=== PATIENT | female | born 1970 ===

== ENCOUNTER 2020-06-05 15:19 | Outpatient (REF) | payer SELFPAY ==
[2020-06-06 08:21] LABS: Rubeola IgG (Measles) >300.00 AU/mL
[2020-06-06 10:27] LABS: CT PCR NOT DETECTED (Not Detect.); NG PCR NOT DETECTED (Not Detect.)
[2020-06-08 03:29] LABS: Syphilis Screen Nonreactive (Nonreactive)
[2020-06-08 16:37] LABS: TS Negative Control Passed; TS Panel A 0; TS Panel B 0; TS Positive Control Passed; TSpotTB Negative (SeeBelow)
== END 2020-06-05 15:20 | disposition home or self-care (01) ==
LOC: HO.LAB 15:19
PROVIDERS: PCP Internal Medicine; Visit Provider Internal Medicine
DX: Z00.00 Encounter for general adult medical examination without abnormal findings (principal)
CPT/HCPCS: 86481; 86735; 86762; 86765; 86780; 87491; 87591

== ENCOUNTER 2021-03-09 12:37 | Emergency (ER) | payer MEDICAID, OTHER, SELFPAY ==
--- NOTE | ~2021-03-09 | XR_ITS ---
EXAMINATION: XR CHEST CLINICAL INFORMATION: Cough COMPARISON: None TECHNIQUE: 2 views of the chest were obtained. FINDINGS: Normal symmetric lung volumes. No parenchymal consolidation. Mild diffuse bronchial wall thickening. No pleural effusion. No pneumothorax. Cardiomediastinal silhouette and pulmonary vascularity are within normal limits. No acute osseous abnormalities. XR/XR chest 2V IMPRESSION: Mild bronchial wall thickening bronchitis or asthma. No focal consolidation.
[2021-03-09 13:40] VITALS: BP 145/85; PULSE 73; RESP 16; TEMP 36.8; O2SAT 100; BMI 23.6
[2021-03-09 15:00] LABS: COVID-19 Test Positive (Negative); IDNOW Serial# 9DD0AD1C
--- NOTE | 2021-03-09 15:11 | ED_ITS ---
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 Pain is worsened with deep breathing and coughing. No chills, body aches, vomiting, diarrhea, leg swelling or pain. Received moderna vaccine x 2. No recent travel. Monday her tested positive for COVID but she tested negative. Related Data Previous Rx's Medication Instructions Recorded albuterol sulfate 90 mcg/actuation 2 puff INHALATION Q4-6H PRN #8.5 g 03/09/21 aerosol inhaler benzonatate 200 mg capsule 200 mg PO TID PRN #20 cap 03/09/21 Allergies Allergy/AdvReac Type Severity Reaction Status Date / Time No Known Allergies Allergy Verified 03/09/21 15:07 Review of Systems Review of Systems: Yes all other systems are reviewed and are negative Constitutional: Constitutional: Reports no additional constitutional complaints, Denies body ache(s), Denies chills, Reports fever(s), Denies headache(s) and Denies weakness Eyes: Eyes: Reports no additional eye complaints and Denies change in vision ENT: Reports system reviewed and no additional complaints, except as documented, Denies dizziness, Denies headache(s), Denies nasal congestion, Denies nasal discharge and Denies neck pain Cardiovascular: Cardiovascular: Reports no additional cardiovascular compl aints, Reports chest pain, Denies leg edema and Reports dyspnea Respiratory: Respiratory: Reports no additional respiratory complaints, Reports cough and Reports dyspnea Gastrointestinal: Gastrointestinal: Reports no additional gastrointestinal complaints, Denies abdominal pain, Denies diarrhea, Denies nausea and Denies vomiting Genitourinary: Genitourinary: Reports no additional female genitourinary complaints and Denies urinary incontinence Musculoskeletal: Musculoskeletal: Reports no additional musculoskeletal complaints, Reports back pain, Denies arthralgias, Denies joint swelling, Denies neck pain, Denies numbness and Denies tingling Integumentary/Breasts: Skin/Breast: Reports system reviewed and no additional complaints, except as docu and Denies rash Neurologic: Denies Abnormal speech present, Denies dizziness, Denies headache(s), Denies numbness, Denies tingling and Denies weakness PMFSH Past Medical History Attestation statement: The following information was validated with the patient. Source: old records reviewed and nursing notes reviewed Medical History Hypertension Social History Social History Advance Directives: No Advance Directives Information Provided: No Patient : No Physical Exam Vital Signs: Vital Signs: Last Vital Signs Temp 98.2 F 03/09/21 13:40 Pulse 73 03/09/21 13:40 Resp 16 03/09/21 13:40 BP 145/85 H 03/09/21 13:40 Pulse Ox 100 03/09/21 13:40 BMI result Body Mass Index 23.6 Const: General: cooperative, healthy appearing, comfortable and no acute distress Orientation/consciousness: patient oriented x3 Limitations: no limitations HENMT: Head: Yes normal to inspection Ears: hearing grossly normal bilaterally and TM's normal bilaterally General nose exam: Normal external nose present Face and sinus: Yes normal facial exam Mouth: Normal oral and palatal mucosa present Throat: Yes posterior oropharynx normal, Yes tonsils normal and Yes uvula midline Eyes: General: appearance normal, both eyes and all related structures Pupils: Equal, round and reactive pupils present Neck: Neck: Yes normal visual inspection, Yes full ROM and Yes no lymphadenopathy Chest: Chest palpation & inspection: normal inspection of the chest Resp: Effort & Inspection: normal respiratory effort Auscultation: clear to auscultation bilaterally Cardio: Rate: regular rate Rhythm: regular rhythm Peripheral pulses: Peripheral pulses 2+ throughout GI: Inspection: Yes normal to inspection Palpation (GI): Soft to palpation and nontender Auscultation: normal bowel sounds Back/Spine/Pelvis: Thoracic/Lumbar Spine: thoracic and lumbar spine normal to inspection Skin: General skin exam: no rashes or lesions noted Neuro: General: patient oriented x3, no focal motor deficits and normal sensation to monofilament Cranial nerves: Yes Equal, round and reactive pupils present Cognition (Neuro): normal cognition Speech: No Abnormal speech present Gait exam (Neuro): Normal gait present Motor exam (neuro): 5/5 motor strength present throughout Extrem: General: Yes normal to inspection, Yes no pedal edema and Yes no calf tenderness Course Course Course Narrative: 50 yo female with a history of HTN here with complaints of 3 days of subjective fever, cough, chest discomfort with coughing, shortness of breath after coughing fits, back pain. COVID + last week. On arrival. Exam is benign. VSS. No tachypnea, hypoxia. COVID +. Will check CXR. PERC 1 for age. No clinical findings concerning for DVT, no tachpna, tachycardia or fever. Less likely PE 1630-CXR shows no infectious processes. Will send home with albuterol MDI as refill, cough suppressant PRN. Reviewed worrisome signs/symptoms with patient and when to seek additional care. Comfortable with discharge home. MDM - URI/Sore Throat Medical Records Attestation: I reviewed the patient's medical records. Lab Data Attestation: I reviewed the patient's lab results. Labs: Lab Results 03/09/21 Range/Units 14:46 COVID-19 ([facility]INA) Positive A (Negative) COVID-19 Clin Com See Note Imaging Data Chest x-ray: Attestation: I personally reviewed and interpreted this imaging study as follows: Radiologist's impression: [address] [address] XRay Report Signed Patient: Evon Newby MR#: [id number] : 1970 Acct:[id number] Age/Sex: 50 / F ADM Date: 03/09/21 Loc: .ED Attending Dr: Ordering Physician: Payton Bermudez NP Date of Service: 03/09/21 Procedure(s): XR chest 2V Accession Number(s): [id number] cc: Payton Bermudez NP~ EXAMINATION: XR CHEST CLINICAL INFORMATION: Cough COMPARISON: None TECHNIQUE: 2 views of the chest were obtained. FINDINGS: Normal symmetric lung volumes. No parenchymal consolidation. Mild diffuse bronchial wall thickening. No pleural effusion. No pneumothorax.? Cardiomediastinal silhouette and pulmonary vascularity are within normal limits. No acute osseous abnormalities. XR/XR chest 2V IMPRESSION: Mild bronchial wall thickening bronchitis or asthma. No focal consolidation. Discharge Plan Discharge Clinical Impression: COVID-19 Patient Disposition: Home, Self-Care Instructions: COVID-19 (Coronavirus Disease 2019) (ED) Additional Instructions: Quarantine for 5 days. If you live with others in your home then mask up around them. For an additional five days social distance, wear masks around others and do not travel Increase fluids, rest Motrin or Tylenol for pain or fever as needed Return to Er for chest pain, shortness of breath Prescriptions: New albuterol sulfate 90 mcg/actuation HFA aerosol inhaler 2 puff inhalation Q4-6H PRN (Reason: shortness of breath or wheezing) Qty: 8.5 RF: 0 benzonatate 200 mg capsule 200 mg PO TID PRN (Reason: cough) Qty: 20 RF: 0 Referrals: Physician,None [Primary Care Provider] - 2 days Print Language: Hungarian
== END 2021-03-09 16:53 | disposition home or self-care (01) ==
PROVIDERS: Emergency Provider Emergency Medicine
DX: U07.1 COVID-19 (principal); I10 Essential (primary) hypertension
CPT/HCPCS: 71046; 87635; 99283

== ENCOUNTER 2021-03-18 10:21 | Outpatient (REF) | payer MEDICAID, OTHER, SELFPAY ==
[2021-03-18 12:10] LABS: Binax Internal Control QC Valid; Binax Now Covid-19 Ag Negative (Negative)
== END 2021-03-18 10:22 | disposition home or self-care (01) ==
LOC: HO.LAB 10:21
PROVIDERS: Visit Provider Internal Medicine
DX: Z13.89 Encounter for screening for other disorder (principal)

== ENCOUNTER 2021-05-13 13:57 | Outpatient (REF) | payer OTHER, MEDICAID, SELFPAY ==
[2021-05-13 15:33] LABS: Mean Corpuscular HGB Conc 32.4 g/dl (31.0-35.0); Mean Corpuscular Hemoglobin 26.8 pg (27.0-33.0); Mean Corpuscular Volume 82.7 fL (80.0-98.0); Mean Platelet Volume 9.7 fL (9.4-12.3); Platelet Count 342 X10*3/uL (160-400); Red Blood Count 4.11 X10*6/uL (4.20-5.50); Red Cell Distribution Width 14.6 % (11.0-16.0)
[2021-05-13 16:12] LABS: WBC ABN SCTR FOR CBC 1; White Blood Count 6.2 X10*3/uL (4.8-10.8)
[2021-05-13 16:29] LABS: HCG Quantitative < 2 mIU/mL; TSH reflex Free T4 1.05 uIU/mL (0.32-4.0)
[2021-05-13 21:42] LABS: CT PCR NOT DETECTED (Not Detect.); NG PCR NOT DETECTED (Not Detect.)
[2021-05-14 07:31] LABS: Follicle Stimulating Hormone 34.2 mIU/mL; Lutenizing Hormone 13.2 mIU/mL
[2021-05-15 17:17] LABS: HPV mRNA E6/E7 rflx Not Detected (Not Detected)
== END 2021-05-13 13:58 | disposition home or self-care (01) ==
LOC: HO.LAB 13:57
PROVIDERS: Visit Provider Obstetrics & Gynecology
DX: Z01.411 Encounter for gynecological examination (general) (routine) with abnormal findings (principal); Z11.51 Encounter for screening for human papillomavirus (HPV); N93.9 Abnormal uterine and vaginal bleeding, unspecified
CPT/HCPCS: 36415; 83001; 83002; 84443; 84702; 85027; 87491; 87591; 87624; 88142; 99202

== ENCOUNTER 2021-06-01 08:16 | Outpatient (REF) | payer OTHER, MEDICAID, SELFPAY ==
--- NOTE | ~2021-06-01 | MM_ITS ---
EXAMINATION: MM SCREENING DIGITAL BREAST TOMOSYNTHESIS, BILATERAL CLINICAL INFORMATION: Screening. Asymptomatic. Age 50. Prior outside mammography from [facility] currently unavailable. Patient will attempt to assist in retrieving prior outside mammography to allow for comparison in an addendum report. No known family history of breast cancer. The lifetime risk of breast cancer based on the Tyrer-Cuzick Model is 8%. COMPARISON: None. TECHNIQUE: Digital breast tomosynthesis is performed in both the craniocaudal and mediolateral oblique views along with computer-aided detection (CAD). Synthesized 2D images are generated from the tomosynthesis. FINDINGS: The breasts are extremely dense, which lowers the sensitivity of mammography (ACR BI-RADS breast composition Category d). There is no significant mass or architectural abnormality. The axilla and skin contours are unremarkable. There are diffuse bilateral round and some coarse round calcifications in each breast, randomly distributed, greater in number on left. There are also circumferential yearly coarse calcifications posterior upper outer left breast likely related to degenerating fibroadenoma. MM/MM tomosynthesis screening BI IMPRESSION: No mammographic evidence of malignancy. ASSESSMENT: BI-RADS 2: Benign RECOMMENDATION: Routine annual mammography screening. This patient's information was entered into a reminder system with a target due date for their next mammogram.
== END 2021-06-01 08:17 | disposition home or self-care (01) ==
LOC: HO.MAMMO 08:16
PROVIDERS: Visit Provider Obstetrics & Gynecology
DX: Z12.31 Encounter for screening mammogram for malignant neoplasm of breast (principal); N93.9 Abnormal uterine and vaginal bleeding, unspecified; I10 Essential (primary) hypertension; Z98.51 Tubal ligation status
CPT/HCPCS: 58100; 77063; 77067; 81025

== ENCOUNTER 2021-06-01 10:55 | Outpatient (REF) | payer OTHER, MEDICAID, SELFPAY | END 2021-06-01 10:56 | disposition home or self-care (01) | LOC: HO.LAB 10:55 | PROVIDERS: Visit Provider Obstetrics & Gynecology | DX: N93.9 Abnormal uterine and vaginal bleeding, unspecified (principal) | CPT/HCPCS: 88305 ==

== ENCOUNTER 2021-06-08 15:48 | Emergency (ER) | payer OTHER, MEDICAID, SELFPAY ==
--- NOTE | 2021-06-08 | ECG_ITS ---
Test Reason : chest pain Blood Pressure : / mmHG Vent. Rate : 073 BPM Atrial Rate : 073 BPM P-R Int : 126 ms QRS Dur : 074 ms QT Int : 404 ms P-R-T Axes : 036 -20 059 degrees QTc Int : 445 ms Normal sinus rhythm Normal ECG No previous ECGs available Referred By: Generic ED Physician Electronically Signed By:HEATHER MARTINEZ MD
--- NOTE | ~2021-06-08 | XR_ITS ---
EXAMINATION: PORTABLE CHEST 1 VIEW CLINICAL INFORMATION: pain . COMPARISON: No recent pertinent prior studies are available for comparison. TECHNIQUE: Portable frontal view of the chest was obtained. FINDINGS: The lungs are well expanded. No focal infiltrate, effusion, edema, or pneumothorax. Cardiac and mediastinal silhouettes are within normal limits for technique. No acute bony abnormality seen. XR/XR chest 1V IMPRESSION: No evidence of acute disease compared to 03/09/2021.
[2021-06-08 16:06] VITALS: BP 132/76; PULSE 77; RESP 16; TEMP 36.4; O2SAT 99; BMI 25.4
[2021-06-08 16:29] LABS: MANUAL DIFF FLAG NO
[2021-06-08 16:42] LABS: Anion Gap 16 (12-20); Blood Urea Nitrogen 9 mg/dL (9-16); Calcium 9.8 mg/dL (8.4-10.2); Carbon Dioxide 25 mmol/L (22-29); Chloride 101 mmol/L (96-108); Creatinine Clr Calc Pharmacy 62.1; Estimated Glomerular Filt Rate > 60; Glucose Random 112 mg/dL (60-115); Sodium 138 mmol/L (135-145)
[2021-06-08 16:46] LABS: Basophils Percent Auto 0.3 % (0-2); Eosinophils Absolute Auto 0.5 X10*3/uL (0.0-0.4); Eosinophils Percent Auto 5.2 % (0-4); Hematocrit 36.3 % (37.0-47.0); Hemoglobin 11.6 g/dl (12.0-16.0); Imm Gran Abs Auto 0.02 X10*3/uL (0.00-0.03); Imm Gran Pct Auto 0.2 % (0.0-0.4); Mean Corpuscular Hemoglobin 26.4 pg (27.0-33.0); Mean Corpuscular Volume 82.5 fL (80.0-98.0); Mean Platelet Volume 10.8 fL (9.4-12.3); Monocytes Absolute Auto 0.6 X10*3/uL (0.1-1.2); Monocytes Percent Auto 6.6 % (2-11); Neutrophils Absolute Auto 6.1 x10*3/uL (2.0-8.3); Neutrophils Percent Auto 65.7 % (45-73); Platelet Count 179 X10*3/uL (160-400); Red Cell Distribution Width 14.9 % (11.0-16.0); White Blood Count 9.3 X10*3/uL (4.8-10.8)
[2021-06-08 16:50] LABS: Troponin-I High Sensitivity < 3.5 ng/L (<3.5-17.0)
[2021-06-08 18:11] VITALS: BP 133/83; PULSE 72; RESP 16; TEMP 37.1; O2SAT 99
--- NOTE | 2021-06-08 18:12 | ED_ITS ---
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 Mode of arrival: ambulatory Limitations: no limitations History of Present Illness MD complaint: chest pain Onset (ago): day(s) (started this AM) Timing of current episode: constant Prior episodes: No Onset: during rest and during exertion Pain location: left chest Pain radiation: none Severity: moderate Quality: tightness and aching Relieving factors: nothing Exacerbating factors: palpation and movement Context: other (heavy lifting at work) Treatment prior to arrival: none Related Data Home Medications Medication Instructions Recorded Confirmed atenolol 5 mg/10 mL intravenous mg IV 05/13/21 solution Previous Rx's Medication Instructions Recorded cyclobenzaprine 10 mg tablet 10 mg PO TID PRN #14 tab 06/08/21 Allergies Allergy/AdvReac Type Severity Reaction Status Date / Time No Known Allergies Allergy Verified 05/13/21 14:29 Review of Systems Review of Systems: Constitutional : No Weight loss, No Fever, No Chills ENT/Mouth : No sore throat, No Rhinorrhea Eyes: No Eye Pain, No Swelling Cardiovascular : pos Chest Pain, no SOB, no Dyspnea on Exertion, No Orthopnea, No Edema, No Palpitations Respiratory : No Cough, No Sputum Gastrointestinal : no Nausea, No Vomiting, No Diarrhea, No abdominal Pain, No Hematochezia, No Melena Genitourinary : No Dysuria, No Urinary Frequency Musculoskeletal : No joint pain, No Myalgias, No Joint Swelling Skin : No Skin Lesions, No rash Neuro : No Weakness, No Numbness, No Dizziness, No Headache Psych : No Anxiety/Panic, No Depression Heme/Lymph: No Bruising, No Lymphadenopathy Endocrine : No Polyuria, No Polydipsia All other systems reviewed and are negative [facility] Past Medical History Attestation statement: The following information was validated with the patient. Medical History Hypertension Surgical History H/O tubal ligation History of lumpectomy of right breast Hx of section Social History Social History Patient Tobacco Use Status: Never used Tobacco Advance Directives: No Advance Directives Information Provided: No Physical Exam Vital Signs: Vital Signs: Last Vital Signs Temp 98.7 F 06/08/21 18:11 Pulse 72 06/08/21 18:11 Resp 16 06/08/21 18:11 BP 133/83 06/08/21 18:11 Pulse Ox 99 06/08/21 18:11 BMI result Body Mass Index 25.4 Appearance: Alert. Oriented X3. No acute distress. Eyes: Pupils equal, round and reactive to light. ENT: Pharynx normal. Neck: Normal inspection. Neck supple. CVS: Normal heart rate and rhythm. Pulses normal. Chest: ttp along L chest wall reproduces pain Respiratory: No respiratory distress. Breath sounds normal. Abdomen: Soft and non-tender. Skin: Skin warm and dry. Normal skin color. Normal skin turgor. Extremities: No lower extremity edema. No calf ttp Neuro: Oriented X 3. No motor deficit. No sensory deficit. Course Course Course Narrative: two troponins negative, CXR negative, nonischemic EKG MDM - Chest Pain MDM Narrative Medical decision making narrative: 50 yo female with hx of HTN was lifting heavy things at work yesterday she reports left sided chest wall pain since then no associated symptoms sent over from for evaluation. She initially refused repeat troponin but agrees for delta study. At this time her pain does seem MSK in nature. She has no hypoxia, tachycardia it is not pleuritic pain, no signs of DVT - doubt PE. In no distress - distal pulses are bounding doubt dissection. Dispo per results and findings. Lab Data Result diagrams: 06/08/21 16:17 06/08/21 16:17 Labs: Lab Results 06/08/21 06/08/21 06/08/21 Range/Units 16:17 16:17 16:17 WBC 9.3 (4.8-10.8) X10*3/uL RBC 4.40 (4.20-5.50) X10*6/uL Hgb 11.6 L (12.0-16.0) g/dl Hct 36.3 L (37.0-47.0) % MCV 82.5 (80.0-98.0) fL MCH 26.4 L (27.0-33.0) pg MCHC 32.0 (31.0-35.0) g/dl RDW 14.9 (11.0-16.0) % Plt Count 179 D (160-400) X10*3/uL MPV 10.8 (9.4-12.3) fL Immature Gran % (Auto) 0.2 (0.0-0.4) % Neut % (Auto) 65.7 (45-73) % Lymph % (Auto) 22.0 (20-40) % [place] % (Auto) 6.6 (2-11) % Eos % (Auto) 5.2 H (0-4) % Baso % (Auto) 0.3 (0-2) % Lymph # (Auto) 2.0 (1.2-4.9) X10*3/uL [place] # (Auto) 0.6 (0.1-1.2) X10*3/uL Eos # (Auto) 0.5 H (0.0-0.4) X10*3/uL Baso # (Auto) 0.0 (0.0-0.2) X10*3/uL Abs Immat Gran (auto) 0.02 (0.00-0.03) X10*3/uL Absolute Neuts (auto) 6.1 (2.0-8.3) x10*3/uL Absolute Nucleated RBC 0.000 (0.0-0.012) X10*3/uL Nucleated RBC % (auto) 0.0 (0.0-0.2) /100WBC Sodium 138 (135-145) mmol/L Potassium 4.0 (3.3-5.1) mmol/L Chloride 101 (96-108) mmol/L Carbon Dioxide 25 (22-29) mmol/L Anion Gap 16 (12-20) BUN 9 (9-16) mg/dL Creatinine 0.89 (0.5-1.4) mg/dL Estim Creat Clear Calc 62.1 Estimated GFR > 60 Random Glucose 112 (60-115) mg/dL Calcium 9.8 (8.4-10.2) mg/dL Troponin I High Sens < 3.5 (<3.5-17.0) ng/L 06/08/21 Range/Units 19:14 WBC (4.8-10.8) X10*3/uL RBC (4.20-5.50) X10*6/uL Hgb (12.0-16.0) g/dl Hct (37.0-47.0) % MCV (80.0-98.0) fL MCH (27.0-33.0) pg MCHC (31.0-35.0) g/dl RDW (11.0-16.0) % Plt Count (160-400) X10*3/uL MPV (9.4-12.3) fL Immature Gran % (Auto) (0.0-0.4) % Neut % (Auto) (45-73) % Lymph % (Auto) (20-40) % [place] % (Auto) (2-11) % Eos % (Auto) (0-4) % Baso % (Auto) (0-2) % Lymph # (Auto) (1.2-4.9) X10*3/uL [place] # (Auto) (0.1-1.2) X10*3/uL Eos # (Auto) (0.0-0.4) X10*3/uL Baso # (Auto) (0.0-0.2) X10*3/uL Abs Immat Gran (auto) (0.00-0.03) X10*3/uL Absolute Neuts (auto) (2.0-8.3) x10*3/uL Absolute Nucleated RBC (0.0-0.012) X10*3/uL Nucleated RBC % (auto) (0.0-0.2) /100WBC Sodium (135-145) mmol/L Potassium (3.3-5.1) mmol/L Chloride (96-108) mmol/L Carbon Dioxide (22-29) mmol/L Anion Gap (12-20) BUN (9-16) mg/dL Creatinine (0.5-1.4) mg/dL Estim Creat Clear Calc Estimated GFR Random Glucose (60-115) mg/dL Calcium (8.4-10.2) mg/dL Troponin I High Sens < 3.5 (<3.5-17.0) ng/L ECG Data ECG #1: Attestation: I personally reviewed and interpreted this ECG as follows: ECG interpretation date: 06/08/21 ECG interpretation time: 18:14 Interpretation: Rate: 73 Rhythm: NSR [place]: left Normal P waves. Normal BELA. Normal QRS complex. ST T wave : normal no EFE qTC: normal prior studies: no acute ischemia The study has been interpreted contemporaneously by me. Discharge Plan Discharge Clinical Impression: Atypical chest pain Patient Disposition: Home, Self-Care Instructions: Chest Pain (ED) Additional Instructions: return to ED for any worsening symptoms or concerns Prescriptions: New cyclobenzaprine 10 mg tablet 10 mg PO TID PRN (Reason: muscle spasm) Qty: 14 0RF No Action atenolol 5 mg/10 mL solution IV 0RF Stand Alone Forms: Work/School Release Print Language: Montenegrin
[2021-06-08 19:45] LABS: Troponin-I High Sensitivity < 3.5 ng/L (<3.5-17.0)
== END 2021-06-08 20:21 | disposition home or self-care (01) ==
PROVIDERS: Emergency Provider Emergency Medicine
DX: R07.89 Other chest pain (principal); R00.2 Palpitations; Z79.899 Other long term (current) drug therapy
CPT/HCPCS: 36415; 71045; 80048; 84484; 85025; 93005; 99283; 99285

== ENCOUNTER → 2021-06-15 11:13 | Outpatient (BNVA) | payer OTHER, MEDICAID, SELFPAY | PROVIDERS: Visit Provider Obstetrics & Gynecology | DX: N93.9 Abnormal uterine and vaginal bleeding, unspecified (principal) | CPT/HCPCS: 99212 ==

== ENCOUNTER 2021-07-02 16:08 | Emergency (ER) | payer MEDICAID, OTHER, SELFPAY ==
--- NOTE | ~2021-07-02 | XR_ITS ---
EXAMINATION: XR CHEST 2 VIEW CLINICAL INFORMATION: Cough COMPARISON: 06/08/2021. TECHNIQUE: PA and lateral views of the chest obtained. FINDINGS: The lungs are clear. There are no pleural effusions. The cardiomediastinal silhouette is normal. XR/XR chest 2V IMPRESSION: No active cardiopulmonary disease.
[2021-07-02 16:11] VITALS: BP 144/81; PULSE 84; RESP 19; TEMP 36.6; O2SAT 98; BMI 25.4
--- NOTE | 2021-07-02 18:02 | ED.URI ---
HPI - URI/Sore Throat General Chief Complaint: Upper Respiratory Symptoms Stated Complaint: coughing/SOB/chest pains Time Seen by Provider: 07/02/21 18:01 Source: patient Mode of arrival: ambulatory History of Present Illness HPI Narrative: 50-year-old female with a past medical history of hypertension, , presenting to the ED complaining of productive cough x5 days and sore throat. Reports mild SOB. Denies fever, chills, chest pain, abdominal pain, recent travel, pedal edema, sick contacts MD elicited complaint: cough Onset (ago): day(s) Related Data Home Medications Medication Instructions Recorded Confirmed atenolol 5 mg/10 mL intravenous mg IV 05/13/21 solution Previous Rx's Medication Instructions Recorded cyclobenzaprine 10 mg tablet 10 mg PO TID PRN #14 tab 06/08/21 ferrous sulfate 325 mg (65 mg 325 mg PO DAILY 30 Days #30 tab 06/10/21 iron) tablet,delayed release benzonatate 200 mg capsule 200 mg PO TID PRN #20 cap 07/02/21 Allergies Allergy/AdvReac Type Severity Reaction Status Date / Time No Known Allergies Allergy Verified 05/13/21 14:29 Review of Systems Review of Systems: Constitutional: No Fever, No Chills ENT/Mouth: No Ear Pain, No Nasal Congestion, No Sinus Pain, No Hoarseness, No sore throat, No Rhinorrhea, No Swallowing Difficulty Cardiovascular: No Chest Pain, + SOB Respiratory: + Cough, + Sputum, No Wheezing Gastrointestinal: No Nausea, No Vomiting, No Diarrhea, No Constipation, No Abdominal pain Genitourinary: No Dysuria, No Urinary Frequency, No Hematuria, No Flank Pain Musculoskeletal: No joint pain, No Myalgias, No Joint Swelling Skin: No Skin Lesions, No rash Neuro: No Weakness, No Numbness, No Paresthesias Yes all other systems are reviewed and are negative [facility] Past Medical History Attestation statement: The following information was validated with the patient. Medical History Hypertension Surgical History H/O tubal ligation History of lumpectomy of right breast Hx of section Social History Social History Patient Tobacco Use Status: Never used Tobacco Advance Directives: No Advance Directives Information Provided: Yes Physical Exam Vital Signs: Vital Signs: Last Vital Signs Temp 98 F 07/02/21 16:11 Pulse 84 07/02/21 16:11 Resp 19 07/02/21 16:11 BP 144/81 H 07/02/21 16:11 Pulse Ox 98 07/02/21 16:11 BMI result Body Mass Index 25.4 Const: General: cooperative, healthy appearing and no acute distress Orientation/consciousness: patient oriented x3 Limitations: no limitations HEENT: Head: Yes normal to inspection and Yes atraumatic Ears: hearing grossly normal bilaterally General nose exam: Normal external nose present Face and sinus: Yes normal facial exam Mouth: Normal oral and palatal mucosa present Throat: Yes posterior oropharynx normal, Yes tonsils normal, Yes uvula midline, No peritonsillar mass and No uvular edema Eyes: General: appearance normal, both eyes and all related structures EOM: EOMs intact bilaterally Neck: Neck: Yes normal visual inspection and Yes no meningeal signs Resp: Effort & Inspection: normal respiratory effort and no respiratory distress Auscultation: clear to auscultation bilaterally, no rales, no rhonchi and no wheezes Cardio: Rate: regular rate Heart sounds: S1 normal heart sound present and S2 normal heart sound present Skin: Rashes: no rashes Wounds: no wounds Neuro: General: patient oriented x3, tone normal and no meningeal signs Gait exam (Neuro): Normal gait present Extrem: General: Yes normal to inspection and Yes no pedal edema Course Course Course Narrative: - COVID-19 and influenza negative. CXR unremarkable. MDM - URI/Sore Throat MDM Narrative Medical decision making narrative: 50-year-old female with a past medical history of hypertension, , presenting to the ED complaining of productive cough x5 days and sore throat. on exam vital signs stable, NAD/nontoxic, lungs CTA, no pedal edema. Concern for viral illness versus bronchitis versus pneumonia. Symptoms atypical for ACS/ PE Plan: COVID-19/ influenza testing, CXR Differential Diagnosis Differential diagnosis: Likely upper respiratory infection, viral infection, bronchitis and influenza Medical Records Attestation: I reviewed the patient's medical records. Lab Data Attestation: I reviewed the patient's lab results. Labs: Lab Results 07/02/21 07/02/21 Range/Units 17:51 17:51 COVID-19 ([facility]IA) Negative (Negative) COVID-19 Clin Com See Note Influenza Type A (JANELLE) Negative (Negative) Influenza Type B (JANELLE) Negative (Negative) Influenza A & B Note See Note Discharge Plan Discharge Clinical Impression: Viral infection Patient Disposition: Home, Self-Care Instructions: Viral Syndrome (ED) Additional Instructions: you tested negative for COVID-19 and the flu. Her chest x-ray is unremarkable. Angelic Marquis for cough, take as needed. Your supplied with an inhaler in the emergency department, use as needed please follow-up with your doctor. If symptoms persist or worsen return to the emergency department Prescriptions: New benzonatate 200 mg capsule 200 mg PO TID PRN (Reason: cough) Qty: 20 0RF No Action ferrous sulfate 325 mg (65 mg iron) tablet,delayed release (DR/EC) 325 mg PO DAILY 30 Days Qty: 30 0RF cyclobenzaprine 10 mg tablet 10 mg PO TID PRN (Reason: muscle spasm) Qty: 14 0RF atenolol 5 mg/10 mL solution IV 0RF Referrals: Physician,None [Primary Care Provider] -
[2021-07-02 18:18] LABS: COVID-19 Test Negative (Negative); IDNOW Serial# 9DB6401D
[2021-07-02 18:20] LABS: IDNOW Serial# 55D5AD1C; Influenza A Negative (Negative); Influenza B2 Negative (Negative)
[2021-07-02] MEDS: Albuterol Sulfate 90 MCG 8 GM INHALER 4 PUFF INHALE (19:44)
== END 2021-07-02 20:21 | disposition home or self-care (01) ==
PROVIDERS: Emergency Provider Internal Medicine
DX: B34.9 Viral infection, unspecified (principal); I10 Essential (primary) hypertension; Z20.822 Contact with and (suspected) exposure to COVID-19
CPT/HCPCS: 71046; 87502; 87635; 99284

== ENCOUNTER 2021-07-27 10:39 | Outpatient (REF) | payer MEDICAID, OTHER, SELFPAY ==
--- NOTE | ~2021-07-27 | US_ITS ---
EXAMINATION: US PELVIS CLINICAL INFORMATION: Abnormal bleeding COMPARISON: None TECHNIQUE: Ultrasound of the pelvis is performed using both transabdominal and transvaginal transducers along with Doppler. Transvaginal imaging is performed due to inadequate visualization transabdominally. FINDINGS: The uterus is anteverted and measures 13 x 4.8 x 7.1 cm in dimension. There is a 2.9 x 1.9 x 3 cm hypoechoic lesion in the uterine fundus probably representing a fibroid. No other focal uterine lesion is seen. Endometrial thickness is normal measuring 1.1 m. There are nabothian cysts in the cervix. The ovaries are normal-appearing. The right ovary measures 3.4 x 2.5 x 2.2 cm and the left ovary measures 2.6 x 1.4 x 2 cm. There is a small amount of fluid in the pelvis. US/US pelvic and transvaginal IMPRESSION: 2 x 3 cm fundal uterine fibroid. Normal thickness endometrium. Normal-appearing ovaries.
== END 2021-07-27 10:40 | disposition home or self-care (01) ==
LOC: HO.US 10:39
PROVIDERS: Visit Provider Obstetrics & Gynecology
DX: N93.9 Abnormal uterine and vaginal bleeding, unspecified (principal)
CPT/HCPCS: 76830; 76856

== ENCOUNTER 2022-02-11 16:23 | Emergency (ER) | payer MEDICAID, OTHER, SELFPAY ==
[2022-02-11 16:31] VITALS: BP 151/102; PULSE 84; RESP 18; TEMP 36.7; O2SAT 98; BMI 23.6
--- NOTE | 2022-02-11 16:33 | ECG_ITS ---
Test Reason : CHEST PAIN Blood Pressure : / mmHG Vent. Rate : 067 BPM Atrial Rate : 067 BPM P-R Int : 144 ms QRS Dur : 074 ms QT Int : 414 ms P-R-T Axes : 024 -13 049 degrees QTc Int : 437 ms Normal sinus rhythm Normal ECG When compared with ECG of 08-JUN-2021 15:50, No significant change was found Referred By: Sherry Kaur Electronically Signed By:Galen Dior
--- NOTE | 2022-02-11 16:34 | ED.CHESTPAIN ---
HPI - Chest Pain General Chief Complaint: Chest Pain Stated Complaint: chest pain Time Seen by Provider: 02/11/22 19:13 Source: patient and old records reviewed Mode of arrival: ambulatory Limitations: no limitations History of Present Illness HPI narrative: 51 yo female presents to the ER for evaluation of right upper chest pain and right upper back pain that started couple hours ago after coughing fit while at work. She states she works at [employer] and for the last 3 days she has been coughing more and had a flare of her ?allergic rhinitis.? She states today she was coughing a lot and then afterwards had new onset of the pain. It is worse with movement and palpation. She is not short of breath but has a dry cough. She states of at [employer] took her blood pressure and it was elevated so she was told to come to the ER for further evaluation. complaint: chest pain Onset (ago): hour(s) Timing of current episode: constant Prior episodes: Yes Onset: other (After coughing fit) Pain location: right chest Pain radiation: back Severity: moderate Quality: aching and sharp Relieving factors: rest Exacerbating factors: palpation and movement Context: recent illness Associated symptoms: cough Treatment prior to arrival: none Risk Factors Coronary artery disease risk factors: none Thoracic aortic dissection risk factors: none Related Data Home Medications Medication Instructions Recorded Confirmed atenolol 5 mg/10 mL intravenous mg IV 05/13/21 solution Previous Rx's Medication Instructions Recorded cyclobenzaprine 10 mg tablet 10 mg PO TID PRN muscle spasm #14 06/08/21 tabs ferrous sulfate 325 mg (65 mg 325 mg PO DAILY 30 days #30 tabs 06/10/21 iron) tablet,delayed release benzonatate 200 mg capsule 200 mg PO TID PRN cough #20 caps 07/02/21 benzonatate 200 mg capsule 200 mg PO TID PRN cough #20 caps 02/11/22 Allergies Allergy/AdvReac Type Severity Reaction Status Date / Time No Known Allergies Allergy Verified 05/13/21 14:29 Review of Systems Review of Systems: Constitutional: No Fever, No Chills ENT/Mouth: No sore throat, No Rhinorrhea, No Swallowing Difficulty Cardiovascular: + Chest Pain, No SOB, No Orthopnea, No Edema Respiratory: + Cough, No Sputum, No Wheezing, No dyspnea Gastrointestinal: + Nausea, No Vomiting, No Diarrhea, No abdominal Paina Musculoskeletal: No joint pain, + Myalgias Skin: No Skin Lesions, No rash Neuro: No Weakness, No Numbness, No Dizziness, + Headache Psych: + Anxiety/Panic, No Depression Heme/Lymph: No Bruising, No Lymphadenopathy Endocrine: No Polyuria, No Polydipsia PMFSH Past Medical History Medical History Hypertension Surgical History H/O tubal ligation History of lumpectomy of right breast Hx of section Social History Social History Patient Tobacco Use Status: Never used Tobacco Advance Directives: No Advance Directives Information Provided: No Physical Exam Vital Signs: Vital Signs: Last Vital Signs Temp 98.1 F 02/11/22 19:24 Pulse 72 02/11/22 19:24 Resp 18 02/11/22 19:24 BP 144/95 H 02/11/22 19:24 Pulse Ox 98 02/11/22 19:24 O2 Del Method 02/11/22 19:24 BMI result Body Mass Index 23.6 Appearance: Alert. Oriented X3. No acute distress. Eyes: Pupils equal, round and reactive to light. ENT: Pharynx normal. Neck: Normal inspection. Neck supple. CVS: Normal heart rate and rhythm. Pulses normal. Anterior chest wall tenderness on the right side as well as the upper right back. Respiratory: No respiratory distress. Breath sounds normal. Abdomen: Soft and nontender. +BS x4 Skin: Skin warm and dry. Normal skin color. Normal skin turgor. No rashes. Extremities: No lower extremity edema. No calf swelling or tenderness. Neuro: Oriented X 3. No motor deficit. No sensory deficit. Course Course Course Narrative: 51 y/o female with history of allergic rhinitis and HTN who presents to the ER for evaluation of acute onset of right sided chest pain and right upper back pain that started 1 hour ago after she had a coughing fit while at work at [employer]. She states the doctor at [employer] took her BP and it was elevated. She was told to come to the ER for further evaluation. Pain is reproducible on exam. Most likely muscular, doubt dissection or PE. Will check with CXR, EKG, labs. She appears well, playing on her cellphone. Reevaluation(s) Reevaluation #1: Found to be COVID positive. Lab workup is unremarkable. Chest x-ray is clear. She is saturating 99% on room air. Her chest pain is localized and reproducible. Most likely muscular. We discussed treatment of this as well as concerning signs and symptoms that should prompt urgent re-evaluation in the ER. She is stable for discharge home. Work note provided. Stable for DC. Medical Decision Making Lab Data MDM Lab Attestation statement: I reviewed the patient's lab results. Result Diagrams: 02/11/22 17:31 02/11/22 17:31 Labs: Lab Results 02/11/22 02/11/22 02/11/22 Range/Units 17:31 17:31 17:31 WBC 5.2 (4.8-10.8) X10*3/uL RBC 4.44 (4.20-5.50) X10*6/uL Hgb 11.8 L (12.0-16.0) g/dl Hct 36.8 L (37.0-47.0) % MCV 82.9 (80.0-98.0) fL MCH 26.6 L (27.0-33.0) pg MCHC 32.1 (31.0-35.0) g/dl RDW 13.8 (11.0-16.0) % Plt Count 358 D (160-400) X10*3/uL MPV 10.0 (9.4-12.3) fL Immature Gran % (Auto) 0.2 (0.0-0.4) % Neut % (Auto) 56.1 (45-73) % Lymph % (Auto) 26.6 (20-40) % [place] % (Auto) 9.2 (2-11) % Eos % (Auto) 7.3 H (0-4) % Baso % (Auto) 0.6 (0-2) % Lymph # (Auto) 1.4 (1.2-4.9) X10*3/uL [place] # (Auto) 0.5 (0.1-1.2) X10*3/uL Eos # (Auto) 0.4 (0.0-0.4) X10*3/uL Baso # (Auto) 0.0 (0.0-0.2) X10*3/uL Abs Immat Gran (auto) 0.01 (0.00-0.03) X10*3/uL Absolute Neuts (auto) 2.9 (2.0-8.3) x10*3/uL Absolute Nucleated RBC 0.000 (0.0-0.012) X10*3/uL Nucleated RBC % (auto) 0.0 (0.0-0.2) /100WBC PT 10.7 (10.0-13.1) SEC INR 0.9 (0.9-1.1) APTT 31.0 (26.0-36.4) SEC Sodium 142 (135-145) mmol/L Potassium 3.3 (3.3-5.1) mmol/L Chloride 102 (96-108) mmol/L Carbon Dioxide 29 (22-29) mmol/L Anion Gap 14 (12-20) BUN 9 (9-16) mg/dL Creatinine 0.78 (0.5-1.4) mg/dL Estim Creat Clear Calc 62.9 Estimated GFR > 60 Random Glucose 117 H (60-115) mg/dL Calcium 10.4 H D (8.4-10.2) mg/dL Magnesium 2.0 (1.6-2.6) mg/dL Total Bilirubin 0.2 (0.0-1.0) mg/dL Direct Bilirubin < 0.2 (0.0-0.5) mg/dL AST 24 (5-31) U/L ALT 19 (0-31) U/L Alkaline Phosphatase 79 (39-117) U/L Troponin I High Sens (<3.5-17.0) ng/L Total Protein 8.0 (6.5-8.0) g/dL Albumin 4.5 (3.5-5.0) g/dL Influenza Type A (PCR) (Negative) Influenza Type B (PCR) (Negative) RSV RNA Qual (PCR) (Negative) SARS-CoV-2 RNA (RT-PCR) (Negative) 02/11/22 02/11/22 Range/Units 17:31 17:31 WBC (4.8-10.8) X10*3/uL RBC (4.20-5.50) X10*6/uL Hgb (12.0-16.0) g/dl Hct (37.0-47.0) % MCV (80.0-98.0) fL MCH (27.0-33.0) pg MCHC (31.0-35.0) g/dl RDW (11.0-16.0) % Plt Count (160-400) X10*3/uL MPV (9.4-12.3) fL Immature Gran % (Auto) (0.0-0.4) % Neut % (Auto) (45-73) % Lymph % (Auto) (20-40) % [place] % (Auto) (2-11) % Eos % (Auto) (0-4) % Baso % (Auto) (0-2) % Lymph # (Auto) (1.2-4.9) X10*3/uL [place] # (Auto) (0.1-1.2) X10*3/uL Eos # (Auto) (0.0-0.4) X10*3/uL Baso # (Auto) (0.0-0.2) X10*3/uL Abs Immat Gran (auto) (0.00-0.03) X10*3/uL Absolute Neuts (auto) (2.0-8.3) x10*3/uL Absolute Nucleated RBC (0.0-0.012) X10*3/uL Nucleated RBC % (auto) (0.0-0.2) /100WBC PT (10.0-13.1) SEC INR (0.9-1.1) APTT (26.0-36.4) SEC Sodium (135-145) mmol/L Potassium (3.3-5.1) mmol/L Chloride (96-108) mmol/L Carbon Dioxide (22-29) mmol/L Anion Gap (12-20) BUN (9-16) mg/dL Creatinine (0.5-1.4) mg/dL Estim Creat Clear Calc Estimated GFR Random Glucose (60-115) mg/dL Calcium (8.4-10.2) mg/dL Magnesium (1.6-2.6) mg/dL Total Bilirubin (0.0-1.0) mg/dL Direct Bilirubin (0.0-0.5) mg/dL AST (5-31) U/L ALT (0-31) U/L Alkaline Phosphatase (39-117) U/L Troponin I High Sens < 3.5 (<3.5-17.0) ng/L Total Protein (6.5-8.0) g/dL Albumin (3.5-5.0) g/dL Influenza Type A (PCR) NEGATIVE (Negative) Influenza Type B (PCR) NEGATIVE (Negative) RSV RNA Qual (PCR) NEGATIVE (Negative) SARS-CoV-2 RNA (RT-PCR) POSITIVE A (Negative) Independent Interpretation I performed an independent interpretation of an: EKG Interpretation: Normal sinus rhythm, ventricular rate 67 beats per minute, normal HI interval, normal QTC, no ST segment elevations or depressions. Radiology Impression Discussion of test interpretation with radiology: I have reviewed the radiologist's reading. Radiologist Impression: Normal chest x-ray Scores Heart Score History: -0- slightly suspicious ECG: -0- normal Age: -1- >45 - <65 Risk factory: -0- no risk factors known Troponin: -0- < or = normal limit Score: 1 Risk: 1.7% Critical Care Time Critical Care Time Critical Care Time: No Discharge Plan Discharge Clinical Impression: COVID-19, Costalchondritis Patient Disposition: Home, Self-Care Instructions: Covid-19 Viral Syndrome and Novel Coronavirus (ED) Hey/Ath, Costochondritis (ED) Additional Instructions: You were found to be COVID-19 POSITIVE today. Your chest x-ray and oxygen levels were normal. Rest. Drink plenty of fluids. Do not go out in public for the next 10 days. Take over the counter cold/flu medications as needed for your symptoms. Take Tylenol and/or Motrin as needed for fevers and body aches. Follow up with your doctor this week. If you shortness of breath worsens , if you develop difficulty breathing or any other concerning symptom come back to the ER for further evaluation. Se encontr? que usted es COVID-19 POSITIVO hoy. Shearer radiograf?a de t?rax y los niveles de ox?micheal fueron normales. [place]. Beber mucho l?quido. No salga en p?blico michelle los pr?ximos 10 d?as. [place] medicamentos de venta sung para el resfriado o la gripe seg?n sea necesario para shadi s?ntomas. [place] Tylenol y/o Motrin seg?n sea necesario para la fiebre y los jany corporales. Henrik un seguimiento con shearer m?dico esta semana. Si shearer dificultad para respirar empeora, si desarrolla dificultad para respirar o cualquier otro s?ntoma preocupante, regrese a la vamshi de emergencias para alfonso evaluaci?n adicional. Prescriptions: New benzonatate 200 mg capsule 200 mg PO TID PRN (Reason: cough) Qty: 20 0RF No Action ferrous sulfate 325 mg (65 mg iron) tablet,delayed release (DR/EC) 325 mg PO DAILY 30 Days Qty: 30 0RF benzonatate 200 mg capsule 200 mg PO TID PRN (Reason: cough) Qty: 20 0RF cyclobenzaprine 10 mg tablet 10 mg PO TID PRN (Reason: muscle spasm) Qty: 14 0RF atenolol 5 mg/10 mL solution IV Stand Alone Forms: Work/School Release Interventions: ED Discharge Assessment Last Done: 02/11/22 19:40 Discharge Date/Time: 02/11/22 19:46
[2022-02-11 17:41] LABS: MANUAL DIFF FLAG NO
[2022-02-11 17:50] LABS: INTERNATIONAL NORM RATIO 0.9 (0.9-1.1); Prothrombin Time 10.7 SEC (10.0-13.1)
[2022-02-11 17:52] LABS: Basophils Percent Auto 0.6 % (0-2); Eosinophils Absolute Auto 0.4 X10*3/uL (0.0-0.4); Eosinophils Percent Auto 7.3 % (0-4); Hematocrit 36.8 % (37.0-47.0); Hemoglobin 11.8 g/dl (12.0-16.0); Imm Gran Abs Auto 0.01 X10*3/uL (0.00-0.03); Imm Gran Pct Auto 0.2 % (0.0-0.4); Lymphocytes Absolute Auto 1.4 X10*3/uL (1.2-4.9); Lymphocytes Percent Auto 26.6 % (20-40); Mean Corpuscular HGB Conc 32.1 g/dl (31.0-35.0); Mean Corpuscular Hemoglobin 26.6 pg (27.0-33.0); Mean Corpuscular Volume 82.9 fL (80.0-98.0); Monocytes Absolute Auto 0.5 X10*3/uL (0.1-1.2); Monocytes Percent Auto 9.2 % (2-11); Neutrophils Absolute Auto 2.9 x10*3/uL (2.0-8.3); Neutrophils Percent Auto 56.1 % (45-73); Platelet Count 358 X10*3/uL (160-400); Red Blood Count 4.44 X10*6/uL (4.20-5.50); Red Cell Distribution Width 13.8 % (11.0-16.0); White Blood Count 5.2 X10*3/uL (4.8-10.8)
[2022-02-11 17:58] LABS: Alanine Aminotransferase 19 U/L (0-31); Albumin Level 4.5 g/dL (3.5-5.0); Alkaline Phosphatase 79 U/L (39-117); Anion Gap 14 (12-20); Aspartate Amino Transferase 24 U/L (5-31); Bilirubin Direct < 0.2 mg/dL (0.0-0.5); Bilirubin Total 0.2 mg/dL (0.0-1.0); Blood Urea Nitrogen 9 mg/dL (9-16); Calcium 10.4 mg/dL (8.4-10.2); Carbon Dioxide 29 mmol/L (22-29); Chloride 102 mmol/L (96-108); Creatinine Clr Calc Pharmacy 62.9; Estimated Glomerular Filt Rate > 60; Glucose Random 117 mg/dL (60-115); Potassium 3.3 mmol/L (3.3-5.1); Sodium 142 mmol/L (135-145)
[2022-02-11 18:22] LABS: Influenza A PCR NEGATIVE (Negative); Influenza B PCR NEGATIVE (Negative); Resp Syncy Virus RNA Qual PCR NEGATIVE (Negative); SARS COV2 PCR INHOUSE POSITIVE (Negative); Troponin-I High Sensitivity < 3.5 ng/L (<3.5-17.0)
[2022-02-11 19:24] VITALS: BP 144/95; PULSE 72; RESP 18; TEMP 36.7; O2SAT 98
== END 2022-02-11 19:46 | disposition home or self-care (01) ==
PROVIDERS: Physician Assistant; Emergency Provider Emergency Medicine
DX: U07.1 COVID-19 (principal); M94.0 Chondrocostal junction syndrome [Tietze]; R07.89 Other chest pain; M54.50 Low back pain, unspecified; M54.6 Pain in thoracic spine; Z79.899 Other long term (current) drug therapy
CPT/HCPCS: 0241U; 71046; 80048; 80076; 83735; 84484; 85025; 85610; 85730; 93005; 99283

== ENCOUNTER 2022-03-21 10:59 | Emergency (ER) | payer MEDICAID, OTHER, SELFPAY ==
[2022-03-21 11:31] VITALS: BP 111/91; PULSE 74; RESP 18; TEMP 36.8; O2SAT 98; BMI 24.5
--- NOTE | 2022-03-21 11:44 | ED.URI ---
HPI - URI/Sore Throat General Chief Complaint: Upper Respiratory Symptoms Stated Complaint: med refill Time Seen by Provider: 03/21/22 11:44 Source: patient and chief of pediatric urology Mode of arrival: ambulatory Limitations: language barrier History of Present Illness HPI Narrative: 51-year-old female with a history of a hernia who presents seeking a refill for tessalon Perles. Patient reports she has chronic cough and tessalon Perles to help this. She denies any fevers, runny nose, difficulty breathing, chest pain. Does not want to be tested for any viral illnesses. Patient is in between primary care doctors. Related Data Home Medications Medication Instructions Recorded Confirmed atenolol 5 mg/10 mL intravenous mg IV 05/13/21 solution Previous Rx's Medication Instructions Recorded cyclobenzaprine 10 mg tablet 10 mg PO TID PRN muscle spasm #14 06/08/21 tabs ferrous sulfate 325 mg (65 mg 325 mg PO DAILY 30 days #30 tabs 06/10/21 iron) tablet,delayed release benzonatate 200 mg capsule 200 mg PO TID PRN cough #20 caps 07/02/21 benzonatate 200 mg capsule 200 mg PO TID PRN cough #20 caps 02/11/22 benzonatate 200 mg capsule 200 mg PO TID PRN cough #60 caps 03/21/22 Allergies Allergy/AdvReac Type Severity Reaction Status Date / Time No Known Allergies Allergy Verified 05/13/21 14:29 Review of Systems Review of Systems: Yes all other systems are reviewed and are negative Constitutional: Constitutional: Reports no additional constitutional complaints, Denies body ache(s), Denies chills, Denies fever(s), Denies headache(s) and Denies weakness Eyes: Eyes: Reports no additional eye complaints and Denies change in vision ENT: Reports system reviewed and no additional complaints, except as documented, Denies dizziness, Denies headache(s), Denies nasal congestion, Denies nasal discharge and Denies neck pain Cardiovascular: Cardiovascular: Reports no additional cardiovascular complaints, Denies chest pain, Denies leg edema and Denies dyspnea Respiratory: Respiratory: Reports no additional respiratory complaints, Reports cough and Denies dyspnea Gastrointestinal: Gastrointestinal: Reports no additional gastrointestinal complaints, Denies abdominal pain, Denies diarrhea, Denies nausea and Denies vomiting Genitourinary: Genitourinary: Reports no additional female genitourinary complaints and Denies urinary incontinence Musculoskeletal: Musculoskeletal: Reports no additional musculoskeletal complaints, Denies back pain, Denies arthralgias, Denies joint swelling, Denies neck pain, Denies numbness and Denies tingling Integumentary/Breasts: Skin/Breast: Reports system reviewed and no additional complaints, except as docu and Denies rash Neurologic: Reports system reviewed and no additional complaints, except as documented, Denies Abnormal speech present, Denies dizziness, Denies headache(s), Denies numbness, Denies tingling and Denies weakness [facility] Past Medical History Attestation statement: The following information was validated with the patient. Source: old records reviewed and nursing notes reviewed Medical History Hypertension Surgical History H/O tubal ligation History of lumpectomy of right breast Hx of section Social History Social History Patient Tobacco Use Status: Never used Tobacco Advance Directives: No Advance Directives Information Provided: Yes Advance Directives on File: No Physical Exam Vital Signs: Vital Signs: Last Vital Signs Temp 98.3 F 03/21/22 11:31 Pulse 74 03/21/22 11:31 Resp 18 03/21/22 11:31 BP 111/91 H 03/21/22 11:31 Pulse Ox 98 03/21/22 11:31 O2 Del Method 03/21/22 11:31 BMI result Body Mass Index 24.5 Const: General: cooperative, healthy appearing, comfortable and no acute distress Orientation/consciousness: patient oriented x3 Limitations: no limitations HEENT: Head: Yes normal to inspection Ears: hearing grossly normal bilaterally and TM's normal bilaterally General nose exam: Normal external nose present Face and sinus: Yes normal facial exam Mouth: Normal oral and palatal mucosa present Throat: Yes posterior oropharynx normal, Yes tonsils normal and Yes uvula midline Eyes: General: appearance normal, both eyes and all related structures Pupils: Equal, round and reactive pupils present Neck: Neck: Yes normal visual inspection, Yes full ROM, Yes no lymphadenopathy and Yes no meningeal signs Chest: Chest palpation & inspection: normal inspection of the chest Resp: Effort & Inspection: normal respiratory effort Auscultation: clear to auscultation bilaterally Cardio: Rate: regular rate Rhythm: regular rhythm Peripheral pulses: Peripheral pulses 2+ throughout GI: Inspection: Yes normal to inspection Palpation (GI): Soft to palpation and nontender Auscultation: normal bowel sounds Back/Spine/Pelvis: Thoracic/Lumbar Spine: thoracic and lumbar spine normal to inspection Skin: General skin exam: no rashes or lesions noted Neuro: General: patient oriented x3, no meningeal signs, no focal motor deficits and normal sensation to monofilament Cranial nerves: Yes Equal, round and reactive pupils present Cognition (Neuro): normal cognition Speech: No Abnormal speech present Gait exam (Neuro): Normal gait present Motor exam (neuro): 5/5 motor strength present throughout Extrem: General: Yes normal to inspection, Yes no pedal edema and Yes no calf tenderness Medical Decision Making Medical Decision Making MDM Narrative: 51-year-old female with a history of a chronic cough who presents seeking medication refill for tessalon as this has been helpful for her in the past. Lungs are clear. Patient does not want any viral testing. Patient will be given prescription for Tessalon Differential Diagnosis Differential Diagnoses: The differential diagnosis associated with the presentation includes chronic cough, viral illness Tests considered The following testing was considered but not selected: Viral testing the patient declined Discharge Plan Discharge Clinical Impression: Cough Patient Disposition: Home, Self-Care Prescriptions: New benzonatate 200 mg capsule 200 mg PO TID PRN (Reason: cough) Qty: 60 0RF No Action ferrous sulfate 325 mg (65 mg iron) tablet,delayed release (DR/EC) 325 mg PO DAILY 30 Days Qty: 30 0RF benzonatate 200 mg capsule 200 mg PO TID PRN (Reason: cough) Qty: 20 0RF cyclobenzaprine 10 mg tablet 10 mg PO TID PRN (Reason: muscle spasm) Qty: 14 0RF benzonatate 200 mg capsule 200 mg PO TID PRN (Reason: cough) Qty: 20 0RF atenolol 5 mg/10 mL solution IV Referrals: Physician,None [Primary Care Provider] - Interventions: ED Discharge Assessment Last Done: 03/21/22 11:48 Discharge Date/Time: 03/21/22 12:00 Print Language: Lao
--- NOTE | 2022-03-21 11:45 | PC.NURSE ---
seen by cleaner in triage and evaluated.
== END 2022-03-21 12:00 | disposition home or self-care (01) ==
LOC: HO.ED 11:54
PROVIDERS: Emergency Provider Student in an Organized Health Care Education/Training Program
DX: R05.9 Cough, unspecified (principal); Z79.899 Other long term (current) drug therapy
CPT/HCPCS: 99282; 99283

== ENCOUNTER 2022-04-21 08:45 | Outpatient (REF) | payer OTHER, MEDICAID, SELFPAY ==
[2022-04-21 10:11] LABS: Hematocrit 38.4 % (37.0-47.0); Hemoglobin 12.7 g/dl (12.0-16.0); Mean Corpuscular HGB Conc 33.1 g/dl (31.0-35.0); Mean Corpuscular Hemoglobin 27.4 pg (27.0-33.0); Mean Corpuscular Volume 82.9 fL (80.0-98.0); Mean Platelet Volume 9.4 fL (9.4-12.3); Platelet Count 316 X10*3/uL (160-400); Red Blood Count 4.63 X10*6/uL (4.20-5.50); Red Cell Distribution Width 14.5 % (11.0-16.0); White Blood Count 6.4 X10*3/uL (4.8-10.8)
[2022-04-21 11:20] LABS: HCG Quantitative < 2 mIU/mL; TSH reflex Free T4 1.74 uIU/mL (0.32-4.0)
[2022-04-22 09:51] LABS: CT PCR NOT DETECTED (Not Detect.); NG PCR NOT DETECTED (Not Detect.)
== END 2022-04-21 08:46 | disposition home or self-care (01) ==
LOC: HO.LAB 08:45
PROVIDERS: Visit Provider Obstetrics & Gynecology
DX: N93.9 Abnormal uterine and vaginal bleeding, unspecified (principal)
CPT/HCPCS: 0353U; 36415; 58100; 84443; 84702; 85027; 99212

== ENCOUNTER 2022-04-21 10:59 | Outpatient (REF) | payer OTHER, SELFPAY | END 2022-04-21 11:00 | disposition home or self-care (01) | LOC: HO.LNP 10:59 | PROVIDERS: Visit Provider Obstetrics & Gynecology | DX: N93.9 Abnormal uterine and vaginal bleeding, unspecified (principal) | CPT/HCPCS: 88305 ==

== ENCOUNTER 2022-05-09 10:43 | Outpatient (REF) | payer OTHER, MEDICAID, SELFPAY ==
--- NOTE | ~2022-05-09 | US_ITS ---
EXAMINATION: US PELVIS CLINICAL INFORMATION: Abnormal uterine and vaginal bleeding. COMPARISON: None available. TECHNIQUE: Ultrasound of the pelvis is performed using both transabdominal and transvaginal transducers along with Doppler. Transvaginal imaging is performed due to inadequate visualization transabdominally. FINDINGS: Uterus: The uterus is anteverted, anteflexed and measures 14.6 x 4.6 x 7.5 cm. The double wall endometrial thickness is 1.4 cm. The uterus is smooth in contour and has normal myometrial echogenicity. There are several hypoechoic lesions consistent with fibroids. 1. Posterior fundal lesion measures 3.4 x 2.1 x 3.2 cm. Previously it measured 2.9 x 1.9 x 3.0 cm. 2. Left upper body lesion measures 0.9 x 0.5 x 0.5 cm. No previous seen. 3. Lesion in the right upper body measures 0.4 x 0.4 x 0.4 cm. Previously not seen. There is trace fluid in the cervix and small nabothian cysts. Adnexa: Both ovaries are visualized. There is normal color flow to the adnexa. There is no ovarian torsion. There is no pelvic ascites or fluid collection. Right ovary measures 3.1 x 2.2 x 2.0 cm and volume 8.5 mL. The ovary appears unremarkable. Left ovary measures 2.8 x 1.8 x 2.8 cm and volume 7.8 mL. The ovary appears unremarkable. US/US pelvic and transvaginal IMPRESSION: 1. Multiple uterine fibroids as described above. 2. Small nabothian cysts in the cervix. 3. The ovaries are unremarkable. 4. There is trace fluid in the cervix.
== END 2022-05-09 10:44 | disposition home or self-care (01) ==
LOC: HO.US 10:43
PROVIDERS: PCP Nurse Practitioner Family; Visit Provider Obstetrics & Gynecology
DX: N93.9 Abnormal uterine and vaginal bleeding, unspecified (principal)
CPT/HCPCS: 76830; 76856

== ENCOUNTER → 2022-06-13 09:26 | Outpatient (BNVA) | payer OTHER, MEDICAID, SELFPAY | PROVIDERS: PCP Nurse Practitioner Family; Visit Provider Obstetrics & Gynecology | DX: Z13.89 Encounter for screening for other disorder (principal) ==

== ENCOUNTER 2022-08-08 12:46 | Emergency (ER) | payer MEDICAID, OTHER, SELFPAY ==
[2022-08-08 13:47] VITALS: BP 138/95; PULSE 69; RESP 18; TEMP 36.4; O2SAT 99; BMI 26.4
--- NOTE | 2022-08-08 13:50 | ED_ITS ---
HPI - General Adult General Chief complaint: General Medical Stated complaint: medication refill Time Seen by Provider: 08/08/22 13:50 Source: patient, RN notes reviewed and operations research manager Mode of arrival: ambulatory Limitations: language barrier History of Present Illness HPI narrative: A 52-year-old female presents for evaluation of ?medication refill. ? Patient reports that she gets a dry cough and shortness of breath around this time every year. She reports that she has an allergy to pollen Patient states that she needs her albuterol refilled She reports a dry cough Related Data Home Medications Medication Instructions Recorded Confirmed benzonatate 200 mg capsule 200 mg PO TID 04/21/22 04/25/22 amlodipine 5 mg tablet 5 mg PO DAILY 04/25/22 04/25/22 Previous Rx's Medication Instructions Recorded cyclobenzaprine 10 mg tablet 10 mg PO TID PRN muscle spasm #14 06/08/21 tabs ferrous sulfate 325 mg (65 mg 325 mg PO DAILY 30 days #30 tabs 06/10/21 iron) tablet,delayed release tranexamic acid 650 mg tablet 1,300 mg PO TID 5 days #30 tabs 06/13/22 (Lysteda) albuterol sulfate 90 mcg/actuation 2 puff inhalation Q4-6H PRN 08/08/22 aerosol inhaler shortness of breath or wheezing #6.7 grams cetirizine 10 mg tablet 10 mg PO DAILY #30 tabs 08/08/22 Allergies Allergy/AdvReac Type Severity Reaction Status Date / Time No Known Allergies Allergy Verified 08/08/22 13:52 Review of Systems Cardiovascular: Cardiovascular: Reports dyspnea Respiratory: Respiratory: Reports chest congestion, Reports cough and Reports dyspnea PMFSH Past Medical History Medical History Hypertension Surgical History H/O tubal ligation History of lumpectomy of right breast Hx of section Family History Family History Father HTN (hypertension) Mother HTN (hypertension) Sister HTN (hypertension) Social History Social History Household Members: Spouse Housing: House Alcohol intake: never Patient Tobacco Use Status: Never used Tobacco Current occupational status: employed Current occupation: [employer] Sexual orientation: Straight/Heterosexual Gender identity: Female Cognitive needs: No Hearing needs: No Vision needs: No Physical Exam ED Const General: healthy appearing, comfortable, no acute distress, alert and awake Nutritional Appearance: well nourished Orientation/consciousness: patient oriented x3 HENMT Head: Yes normocephalic and Yes atraumatic Throat: Yes posterior oropharynx normal Eyes Eyelids: Yes eyelids normal Conjunctivae: conjunctivae normal Sclerae: sclerae normal Corneas: corneas normal Pupils: Equal, round and reactive pupils present EOM: EOMs intact bilaterally Neck Neck: Yes full ROM Resp Effort & Inspection: normal respiratory effort, able to speak in complete sentences, no audible wheezes and not labored Auscultation: clear to auscultation bilaterally Skin General skin exam: no rashes or lesions noted and elasticity normal Neuro General: patient oriented x3 Cranial nerves: Yes Equal, round and reactive pupils present and Yes Bilaterally intact EOM present Cognition (Neuro): normal cognition Medical Decision Making Medical Decision Making MDM Narrative: Patient likely has seasonal allergies, she is not currently taking any allergy medication we will start her on cetirizine daily and refill her albuterol inhale r. She has no wheezing on exam Differential Diagnosis Allergies Postnasal drip Acute asthma exacerbation Sinusitis Discharge Plan Discharge Clinical Impression: Allergic cough Patient Disposition: Home, Self-Care Instructions: Acute Cough (ED) Additional Instructions: Take the albuterol inhaler as needed Start taking allergy medication daily Follow-up with your primary doctor Prescriptions: New cetirizine 10 mg tablet 10 mg PO DAILY Qty: 30 0RF albuterol sulfate 90 mcg/actuation HFA aerosol inhaler 2 puff inhalation Q4-6H PRN (Reason: shortness of breath or wheezing) Qty: 6.7 0RF No Action ferrous sulfate 325 mg (65 mg iron) tablet,delayed release (DR/EC) 325 mg PO DAILY 30 Days Qty: 30 0RF cyclobenzaprine 10 mg tablet 10 mg PO TID PRN (Reason: muscle spasm) Qty: 14 0RF amlodipine 5 mg tablet 5 mg PO DAILY benzonatate 200 mg capsule 200 mg PO TID tranexamic acid [Lysteda] 650 mg tablet 1,300 mg PO TID 5 Days Qty: 30 11RF
== END 2022-08-08 14:04 | disposition home or self-care (01) ==
LOC: HO.ED 14:03
PROVIDERS: Emergency Provider Emergency Medicine; PCP Nurse Practitioner Family
DX: R05.9 Cough, unspecified (principal)
CPT/HCPCS: 99282; 99283

== ENCOUNTER 2023-04-03 09:53 | Outpatient (AMB) | payer OTHER, SELFPAY ==
--- NOTE | 2023-04-03 10:02 | A.OFFVIS_ITS ---
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 Complaining of heavy menstrual cycle associated with passage of blood clots Last Pap/HPV was negative in 05/11 Last Mammogram was BI-RADS 2 in 06/11 Last Colonoscopy was 7 years ago, the recommendation was to repeat in 10 [facility] Medical History Hypertension Surgical History H/O tubal ligation Hx of section History of lumpectomy of right breast Family History Father HTN (hypertension) Mother HTN (hypertension) Sister HTN (hypertension) Social History Household Members: Spouse Housing: House Alcohol intake: never Patient Tobacco Use Status: Never used Tobacco Current occupational status: employed Current occupation: [employer] Sexual orientation: Straight/Heterosexual Gender identity: Female Cognitive needs: No Hearing needs: No Vision needs: No Female Reproductive History Menstrual Age of Menarche: 10 control method: permanent sterilization Permanent Sterilization: BTL Total pregnancies: 3 Full term: 1 Number of Living Children: 1 Date of last pap smear: 05/13/21 (neg pap and hpv) Date of Mammogram: 06/01/21 Review of Systems Const All systems reviewed & are unremarkable except as noted in HPI and below Card Reports as per HPI Resp Reports as per HPI GI Reports as per HPI and Reports no additional complaints Reports as per HPI Physical Exam Vital Signs: Last Vital Signs BP 122/80 04/03/23 10:03 BMI result Body Mass Index 28.3 Const General: cooperative, healthy appearing and comfortable Chest Chest palpation & inspection: normal inspection of the chest and normal palpation of entire chest wall Breast/axilla inspection: normal inspection of the breasts and normal inspection of the axillae Breast/axilla palpation: normal palpation of the breasts, normal palpation of the axillae and no axillary lymphadenopathy Resp Effort & Inspection: normal respiratory effort Auscultation: clear to auscultation bilaterally Percussion: percussion normal Cardio Palpation: normal PMI Rate: regular rate Rhythm: regular rhythm Heart sounds: no murmurs and no rubs Peripheral pulses: Peripheral pulses 2+ throughout GI Inspection: Yes normal to inspection Palpation (GI): Soft to palpation, nontender, no guarding, not rigid and No hepatosplenomegaly present Percussion: Yes normal to percussion Auscultation: normal bowel sounds Rectal Exam - Female: deferred General: Yes bladder normal to palpation External Female Exam: No lesion Speculum Exam - Vagina: normal appearance of the vagina, normal palpation, normal vaginal discharge and not erythematous Speculum Exam - Cervix: normal appearance of the cervix and normal palpation Bimanual exam- vagina & uterus: normal bimanual exam, normal palpation, uterine size normal, bladder normal to palpation, consistency normal and normal palpation Bimanual Exam- Adnexa, other: normal adnexae, no masses and no tenderness Assessment & Plan Assessment & Plan (1) Well woman exam: Code(s): Z01.419 - Encounter for gynecological examination (general) (routine) without abnormal findings Plan: Co testing not indicated this year. Counseled the patient about the recommended dietary allowance of 1200 mg of Calcium & 600 IU of vitamin D. Mammogram ordered. The patient was referred to GI for screening colonoscopy . The patient was instructed to perform monthly self-breast exams and schedule annual exam in a year. All questions answered and the patient verbalized understanding. (2) Abnormal uterine bleeding: Code(s): N93.9 - Abnormal uterine and vaginal bleeding, unspecified Plan: Co testing not indicated this year, GC and chlamydia taken CBC, TSH, FSH/LH, prolactin HCG, and pelvic ultrasound ordered. Discussed with the patient the different causes of abnormal bleeding including thyroid disorders, uterine and ovarian pathology, endometrial hyperplasia, carcinoma and other potential causes. Discussed with the patient the work up including CBC (to r/o anemia), TSH, FSH/LH, prolactin pelvic Ultrasound, endometrial biopsy to r/o endometrial pathology. All questions answered and the patient verbalized understanding. Instructed the patient to schedule an appointment for an endometrial biopsy in 2 weeks. Orders: Orders TSH reflex Free T4 Today N93.9 - Abnormal uterine and vaginal bleeding, unspecified Lutenizing Hormone Today N93.9 - Abnormal uterine and vaginal bleeding, unspecified Follicle Stimulating Hormone Today N93.9 - Abnormal uterine and vaginal bleeding, unspecified CT NG by PCR Today N93.9 - Abnormal uterine and vaginal bleeding, unspecified US pelvic and transvaginal Today N93.9 - Abnormal uterine and vaginal bleeding, unspecified MM screening mammo BI Today Z12.31 - Encounter for screening mammogram for malignant neoplasm of breast Complete Blood Count no Diff Today N93.9 - Abnormal uterine and vaginal bleeding, unspecified Prolactin Today N93.9 - Abnormal uterine and vaginal bleeding, unspecified HCG Quantitative Today N93.9 - Abnormal uterine and vaginal bleeding, unspecified Coding Level of Care Code Est Pt Prev Care 40-64y(37449) Diagnoses Well woman exam Z01.419 Abnormal uterine bleeding N93.9
[2023-04-03 10:03] VITALS: BP 122/80; BMI 28.3
== END 2023-04-03 11:08 | disposition home or self-care (01) ==
LOC: HO.HWS 09:53
PROVIDERS: PCP Nurse Practitioner Family; Visit Provider Obstetrics & Gynecology
DX: Z01.419 Encounter for gynecological examination (general) (routine) without abnormal findings (principal); N93.9 Abnormal uterine and vaginal bleeding, unspecified
CPT/HCPCS: 99396

== ENCOUNTER 2023-04-03 09:53 | Outpatient (REF) | payer OTHER, SELFPAY ==
[2023-04-03 13:28] LABS: CT PCR NOT DETECTED (Not Detect.); NG PCR NOT DETECTED (Not Detect.)
== END 2023-04-03 09:54 | disposition home or self-care (01) ==
LOC: HO.LNP 09:53
PROVIDERS: PCP Nurse Practitioner Family; Visit Provider Obstetrics & Gynecology
DX: Z01.419 Encounter for gynecological examination (general) (routine) without abnormal findings (principal); N93.9 Abnormal uterine and vaginal bleeding, unspecified
CPT/HCPCS: 0353U; 99396

== ENCOUNTER 2023-04-03 11:04 | Outpatient (REF) | payer OTHER, SELFPAY ==
--- NOTE | ~2023-04-03 | US_ITS ---
EXAMINATION: US PELVIS CLINICAL INFORMATION: Abnormal uterine and vaginal bleeding, unspecified LMP: 03/08/2023, Currently COMPARISON: Pelvic ultrasound 05/09/2022 TECHNIQUE: Ultrasound of the pelvis is performed using both transabdominal and transvaginal transducers along with Doppler. Transvaginal imaging is performed due to inadequate visualization transabdominally. FINDINGS: Uterus: The uterus is anteverted and measures 10.6 x 5.7 x 6.0 cm. There are 3 uterine fibroids includin.4 x 1.9 x 3.6 cm posterior fundal, previously 3.4 x 2.1 x 3.2 cm. 1.0 x 1.1 x 1.1 cm intramural fibroid on the right is new. 0.6 x 0.5 x 0.5 cm intramural fibroid left upper body previously measured 0.9 x 0.5 x 0.5 cm. 1.4 x 1.1 x 1.3 cm anterior subserosal fibroid in the right upper body is new. There are multiple tiny subcentimeter fibroids of which were not measured. The endometrial thickness is 1.1 mm. Adnexa: Both ovaries are visualized. There is normal color flow to the adnexa. There is no ovarian torsion. There is no pelvic ascites or fluid collection. Right ovary measures 4.0 x 2.6 x 3.5 cm. Volume 18.5 mL. There is a dominant follicle. No imaging follow-up is recommended. Left ovary measures 3.1 x 1.7 x 2.9 cm. Volume 8.1 mL. There is an anechoic tubular structure in the left ovary,? Hydrosalpinx extending into the ovary. US/US pelvic and transvaginal IMPRESSION: 1. Multiple uterine fibroids. 2. Anechoic tubular structure in the left ovary,? Hydrosalpinx extending into the ovary.
[2023-04-03 13:01] LABS: Hematocrit 39.5 % (37.0-47.0); Hemoglobin 12.8 g/dl (12.0-16.0); Mean Corpuscular HGB Conc 32.4 g/dl (31.0-35.0); Mean Corpuscular Hemoglobin 27.5 pg (27.0-33.0); Mean Corpuscular Volume 84.8 fL (80.0-98.0); Mean Platelet Volume 10.4 fL (9.4-12.3); PLT CLUMP 1; Red Blood Count 4.66 X10*6/uL (4.20-5.50); Red Cell Distribution Width 14.6 % (11.0-16.0)
[2023-04-03 13:02] LABS: White Blood Count 6.4 X10*3/uL (4.8-10.8)
[2023-04-03 13:29] LABS: HCG Quantitative < 2 mIU/mL; TSH reflex Free T4 1.45 uIU/mL (0.32-4.0)
[2023-04-04 09:14] LABS: Follicle Stimulating Hormone 13.2 mIU/mL; Prolactin 5.3 ng/mL
== END 2023-04-03 11:05 | disposition home or self-care (01) ==
LOC: HO.US 11:04
PROVIDERS: Visit Provider Obstetrics & Gynecology
DX: N93.9 Abnormal uterine and vaginal bleeding, unspecified (principal)
CPT/HCPCS: 36415; 76830; 76856; 83001; 83002; 84146; 84443; 84702; 85027

== ENCOUNTER 2023-05-01 10:20 | Outpatient (REF) | payer OTHER, SELFPAY ==
--- NOTE | ~2023-05-01 | MM_ITS ---
EXAMINATION: MM SCREENING DIGITAL BREAST TOMOSYNTHESIS, BILATERAL CLINICAL INFORMATION: Screening. Asymptomatic. COMPARISON: Mammography: This study is compared with the only prior mammogram [id number]. TECHNIQUE: Digital breast tomosynthesis is performed in both the craniocaudal and mediolateral oblique views along with computer-aided detection (CAD). Synthesized 2D images are generated from the tomosynthesis. FINDINGS: The breasts are heterogeneously dense, which may obscure small masses (ACR BI-RADS breast composition Category c). There are no significant masses, abnormal calcifications, or other abnormalities. There are unchanged, bilateral, benign calcifications. MM/MM tomosynthesis screening BI IMPRESSION: No mammographic evidence of malignancy. ASSESSMENT: BI-RADS BI-RADS 2 - Benign Findings RECOMMENDATION: Routine annual mammography screening. 1 year F/U This examination should not preclude the clinical evaluation of a suspicious palpable abnormality. This patient's information was entered into a reminder system with a target due date for their next mammogram.
[2023-05-01 17:16] LABS: Hematocrit 38.5 % (37.0-47.0); Hemoglobin 12.3 g/dl (12.0-16.0); Mean Corpuscular HGB Conc 31.9 g/dl (31.0-35.0); Mean Corpuscular Hemoglobin 27.8 pg (27.0-33.0); Mean Corpuscular Volume 87.1 fL (80.0-98.0); Mean Platelet Volume 12.8 fL (9.4-12.3); Platelet Count 187 X10*3/uL (160-400); Red Blood Count 4.42 X10*6/uL (4.20-5.50); Red Cell Distribution Width 14.6 % (11.0-16.0); White Blood Count 7.3 X10*3/uL (4.8-10.8)
== END 2023-05-01 10:21 | disposition home or self-care (01) ==
LOC: HO.MAMMO 10:20
PROVIDERS: Visit Provider Obstetrics & Gynecology
DX: Z12.31 Encounter for screening mammogram for malignant neoplasm of breast (principal); N93.9 Abnormal uterine and vaginal bleeding, unspecified
CPT/HCPCS: 36415; 58100; 77063; 77067; 81025; 85027

== ENCOUNTER → 2023-05-01 11:00 | Outpatient (BNV) | payer OTHER, SELFPAY | PROVIDERS: Visit Provider Radiology Diagnostic Radiology | DX: Z12.31 Encounter for screening mammogram for malignant neoplasm of breast (principal) | CPT/HCPCS: 77063; 77067 ==

== ENCOUNTER 2023-05-01 15:22 | Outpatient (AMB) | payer OTHER, SELFPAY ==
--- NOTE | 2023-05-01 15:40 | MHC.OFFVIS ---
Intake Vital Signs 05/01/23 15:46 Height 5 ft 1 in Weight 149 lb 14.629 oz BMI 28.3 BP 114/62 Intake Visit Reasons: EMB/US follow up/MM/DO NOT RS Captain Waiter/Waitress Required: Yes Captain Waiter/Waitress Language: Bulk Station Operator Name: Misa HARDING Information Interpreted: non-clinical & clinical Oil Heat Technician: Oil Heat Technician Present (Misa HARDING) Accompanied by: Self / Same As Patient Allergies No Known Allergies Allergy (Verified 05/01/23 15:47) HPI HPI Comments History of Present Illness Details Presenting for EMB complaining of 5 days of heavy bleeding PFSH Medical History Hypertension Surgical History H/O tubal ligation Hx of section History of lumpectomy of right breast Family History Father HTN (hypertension) Mother HTN (hypertension) Sister HTN (hypertension) Social History Household Members: Spouse Housing: House Alcohol intake: never Patient Tobacco Use Status: Never used Tobacco Current occupational status: employed Current occupation: [employer] Sexual orientation: Straight/Heterosexual Gender identity: Female Cognitive needs: No Hearing needs: No Vision needs: No Female Reproductive History Menstrual Age of Menarche: 10 Physical Exam Vital Signs: Last Vital Signs BP 114/62 05/01/23 15:46 BMI result Body Mass Index 28.3 Office Procedures Endometrial Biopsy Details: The patient was counseled regarding the indication and benefits of endometrial sampling to rule out endometrial pathology including not limited to endometrial hyperplasia or endometrial cancer and others; The alternatives (Either do nothing vs. hysteroscopy D&C) & the risks were discussed with the patient including but not limited: pain, uterine perforation, bleeding, infection, possible injury to bladder, bowel, ureter, possible need for blood transfusion with all its possible risks. The patient verbalized understanding all questions answered and signed consent. Urine test done in the office was negative The patient was placed into the dorsal lithotomy position; a speculum was inserted in the vagina. Using aseptic technique for the procedure, the cervix was cleansed with Betadine. The anterior lip of the cervix was grasped with a single tooth tenaculum. The uterus was sounded to 7 cm with a 4 mm Pipelle was used. Tissues samples were obtained and placed in formalin, in a patient labeled container and sent to the pathology department. At the end of the procedure, there was minimal bleeding noted The patient tolerated the procedure well and was discharged in good condition with the following instructions: Nothing in the vagina until the bleeding stops. No sex until the bleeding stops, to call if any of the following occurs: fever (>100.4), flu-like symptoms, abdominal pain, heavy bleeding, four smelling vaginal discharge. The patient was instructed to schedule a Follow up appointment in 2 weeks to discuss pathology results of the biopsy and treatment options. This note was generated with a voice recognition program. Some errors may have been overlooked during the review of this note. Sometimes these errors may affect the content or meaning of a given sentence. [id number] Biopsy Assessment & Plan Assessment & Plan (1) Abnormal uterine bleeding: Code(s): N93.9 - Abnormal uterine and vaginal bleeding, unspecified Plan: Will repeat CBC, EMB done, see procedure note Orders: Orders Complete Blood Count no Diff Today N93.9 - Abnormal uterine and vaginal bleeding, unspecified AMB Endometrial Biopsy Today N93.9 - Abnormal uterine and vaginal bleeding, unspecified Coding Level of Care Code Procedure Only Diagnoses Abnormal uterine bleeding N93.9 CPT Codes Endometrial Biopsy - CPT: 50022-Ytkbuuwzwwl Biopsy ([id number])
[2023-05-01 15:46] VITALS: BP 114/62; BMI 28.3
== END 2023-05-01 16:17 | disposition home or self-care (01) ==
LOC: HO.HWS 15:23
PROVIDERS: PCP Nurse Practitioner Family; Visit Provider Obstetrics & Gynecology
DX: N93.9 Abnormal uterine and vaginal bleeding, unspecified (principal); Z32.02 Encounter for pregnancy test, result negative
CPT/HCPCS: 58100

== ENCOUNTER 2023-05-01 16:07 | Outpatient (REF) | payer OTHER, SELFPAY | END 2023-05-01 16:08 | disposition home or self-care (01) | LOC: HO.LNP 16:07 | PROVIDERS: Visit Provider Obstetrics & Gynecology | DX: N93.9 Abnormal uterine and vaginal bleeding, unspecified (principal) | CPT/HCPCS: 88305 ==

== ENCOUNTER 2023-05-08 12:29 | Outpatient (AMB) | payer OTHER, SELFPAY ==
[2023-05-08 12:53] VITALS: BP 118/68; BMI 28.2
--- NOTE | 2023-05-08 12:53 | MHC.OFFVIS ---
Intake Vital Signs 05/08/23 12:53 Height 5 ft 1 in Weight 149 lb BMI 28.2 BP 118/68 Intake Visit Reasons: EMB results Water And Sewer Systems Superintendent Required: Yes Water And Sewer Systems Superintendent Language: Optimization Engineer Name: Brenda [id number] Allergies No Known Allergies Allergy (Verified 05/08/23 12:54) Is last menstrual period known: Yes Last menstrual period: 04/27/23 Post menopausal: No HPI HPI Comments History of Present Illness Details The patient is presenting for follow-up to discuss the results of her abnormal uterine bleeding workup and options of treatment. The following workup was done.: H&H= 12.3/38.5 TSH, prolactin, hCG, GC and chlamydia were negative. FSH/LH in the premenopausal range Endometrial biopsy pathology showed the following: Benign endometrium with extensive glandular and stromal breakdown (lytic endometrium) with abundant blood; no atypia or carcinoma seen Co testing was done in 05/11 was negative. Mammogram was recently done, report still pending Pelvic ultrasound showed the following: Uterus: The uterus is anteverted and measures 10.6 x 5.7 x 6.0 cm. There are 3 uterine fibroids includin.4 x 1.9 x 3.6 cm posterior fundal, previously 3.4 x 2.1 x 3.2 cm. 1.0 x 1.1 x 1.1 cm intramural fibroid on the right is new. 0.6 x 0.5 x 0.5 cm intramural fibroid left upper body previously measured 0.9 x 0.5 x 0.5 cm. 1.4 x 1.1 x 1.3 cm anterior subserosal fibroid in the right upper body is new. There are multiple tiny subcentimeter fibroids of which were not measured. The endometrial thickness is 1.1 mm. Adnexa: Both ovaries are visualized. There is normal color flow to the adnexa. There is no ovarian torsion. There is no pelvic ascites or fluid collection. Right ovary measures 4.0 x 2.6 x 3.5 cm. Volume 18.5 mL. There is a dominant follicle. No imaging follow-up is recommended. Left ovary measures 3.1 x 1.7 x 2.9 cm. Volume 8.1 mL. There is an anechoic tubular structure in the left ovary,? Hydrosalpinx extending into the ovary [facility] Medical History Hypertension Surgical History H/O tubal ligation Hx of section History of lumpectomy of right breast Family History Father HTN (hypertension) Mother HTN (hypertension) Sister HTN (hypertension) Social History Household Members: Spouse Housing: House Alcohol intake: never Patient Tobacco Use Status: Never used Tobacco Current occupational status: employed Current occupation: [employer] Sexual orientation: Straight/Heterosexual Gender identity: Female Cognitive needs: No Hearing needs: No Vision needs: No Female Reproductive History Menstrual Age of Menarche: 10 Date of last menstrual period: 04/27/23 control method: permanent sterilization Review of Systems Const All systems reviewed & are unremarkable except as noted in HPI and below Reports as per HPI and Reports no additional complaints GI Reports no additional complaints Reports no additional complaints Physical Exam Vital Signs: Last Vital Signs BP 118/68 05/08/23 12:53 BMI result Body Mass Index 28.2 Assessment & Plan Assessment & Plan (1) Uterine myoma: Code(s): D25.9 - Leiomyoma of uterus, unspecified Plan: Discussed with the patient the findings on pelvic ultrasound & the risk of myosarcoma; discussed with the patient the options of treatment including expectant management versus hysterectomy; the pros and cons, risks benefits of each approach were discussed with the patient including the fact that in cases of myosarcoma, surgical treatment can lead to early diagnosis and positively affects the prognosis; after further discussion, the patient decided to proceed with expectant management. Will repeat pelvic ultrasound periodically. Instructions given to patient to call in case any of the following occurs: pressure symptoms, abnormal uterine bleeding, pelvic pain; and to schedule a future office follow-up appointment for reassessment and to order a repeat ultrasound . All questions answered, the patient verbalized understanding and agreed with the plan . (2) Abnormal uterine bleeding: Code(s): N93.9 - Abnormal uterine and vaginal bleeding, unspecified Plan: Discussed with the patient the results of the work up done and options of treatment including Lysteda, control pills, Mirena IUD, endometrial ablation and hysterectomy. All pros, cons, risks and benefits if each option was discussed with the patient and the patient decided to go ahead with Mirena IUD so a more detailed discussion about it was conducted including mechanism of action, risks (uterine perforation, infection, injury to bladder, bowel, displacement, and others) benefits (hypo menorrhea, amenorrhea, ...). GC/CT were taken and the patient was instructed to schedule Mirena IUD insertion on day 1-5 of next cycle . All questions answered, the patient verbalized understanding (3) Hydrosalpinx: Code(s): N70.11 - Chronic salpingitis Plan: Discussed with the patient the results the ultrasound showing possible hydrosalpinx, instructions given the patient to call in case of pelvic pain and or fever , all questions answered, the patient verbalized understanding. Coding Level of Care Code Est Pt Level 3 (19085) Diagnoses Uterine myoma D25.9 Abnormal uterine bleeding N93.9 Hydrosalpinx N70.11
== END 2023-05-08 16:15 | disposition home or self-care (01) ==
LOC: HO.HWS 12:29
PROVIDERS: PCP Nurse Practitioner Family; Visit Provider Obstetrics & Gynecology
DX: D25.9 Leiomyoma of uterus, unspecified (principal); N93.9 Abnormal uterine and vaginal bleeding, unspecified; N70.11 Chronic salpingitis
CPT/HCPCS: 99213

== ENCOUNTER → 2023-05-08 12:29 | Outpatient (BNVA) | payer OTHER, SELFPAY | PROVIDERS: PCP Nurse Practitioner Family; Visit Provider Obstetrics & Gynecology | DX: D25.9 Leiomyoma of uterus, unspecified (principal); N93.9 Abnormal uterine and vaginal bleeding, unspecified; N70.11 Chronic salpingitis | CPT/HCPCS: 99212 ==

== ENCOUNTER 2023-05-29 11:20 | Outpatient (AMB) | payer OTHER, SELFPAY ==
[2023-05-29 11:39] VITALS: BP 124/76; BMI 28.2
--- NOTE | 2023-05-29 11:39 | MHC.OFFVIS ---
Intake Vital Signs 05/29/23 11:39 Height 5 ft 1 in Weight 149 lb BMI 28.2 BP 124/76 Intake Visit Reasons: Mirena insertion Oil Heat Technician Required: Yes Oil Heat Technician Language: Clay Artisan Name: Anjana [id number] Information Interpreted: non-clinical & clinical Teletypewriter Operator: Teletypewriter Operator Present (Aidyn) Allergies No Known Allergies Allergy (Verified 05/29/23 11:40) Is last menstrual period known: Yes Last menstrual period: 04/27/23 Post menopausal: No Patient : No HPI HPI Comments History of Present Illness Details Presenting for Mirena IUD insertion PFSH Medical History Hypertension Surgical History H/O tubal ligation Hx of section History of lumpectomy of right breast Family History Father HTN (hypertension) Mother HTN (hypertension) Sister HTN (hypertension) Social History Household Members: Spouse Housing: House Alcohol intake: never Patient Tobacco Use Status: Never used Tobacco Patient : No Current occupational status: employed Current occupation: [employer] Sexual orientation: Straight/Heterosexual Gender identity: Female Cognitive needs: No Hearing needs: No Vision needs: No Female Reproductive History Menstrual Age of Menarche: 10 Date of last menstrual period: 04/27/23 control method: permanent sterilization Physical Exam Vital Signs: Last Vital Signs BP 124/76 05/29/23 11:39 BMI result Body Mass Index 28.2 Office Procedures IUD Insert/Removal Details Details: The patient is presenting for Mirena IUD insertion Urine test was done in the office and was negative; All the contraindications were excluded. The following possible complications were discussed with the patient: Intrauterine , Ectopic , Sepsis, Pelvic Infection, Irregular Bleeding and Amenorrhea, Perforation, Expulsion, Ovarian Cysts, Breast Cancer, The following adverse effects were discussed with the patient: alteration of menstrual bleeding pattern, including: unscheduled uterine bleeding decreased uterine bleeding increased scheduled uterine bleeding female genital tract bleeding ,amenorrhea , genital discharge , vulvovaginitis , breast pain , benign ovarian cyst and associated complications , dysmenorrhea , Gastrointestinal disorders abdominal/pelvic pain, headache/migraine , back pain , acne , depression Alternative options were discussed with the patient including but not limited: control pills, patch, NuvaRing, Depo-medroxyprogesterone acetate, Nexplanon, copper IUD, sterilization, vasectomy, others The procedure was explained in detail to patient , at the end patient signed the informed consent obtained. A no touch technique was used throughout the procedure. A speculum was placed into vagina and cervix was cleaned with betadine). A tenaculum was placed. A plastic sound was advanced through the external and internal os until it reached the fundus of the uterus, the depth was 8 cm. The sound was then withdrawn. The IUD was loaded in a sterile manner and advanced into position. The string was visualized and cut to 3 cm. Tenaculum site hemostatic. All instruments removed from vagina. Patient tolerated the procedure well. NO complications were noted. Patient was instructed to call for fever over 100.4, significant pain unrelieved by Motrin, IUD expulsion, heavy bleeding, or abnormal discharge. In addition, the following clinical considerations were discussed with the patient to call for removal: A stroke or heart attack ,Very severe or migraine headaches ,Unexplained fever ,Yellowing of the skin or whites of the eyes, as these may be signs of serious liver problems , or suspected , Pelvic pain or pain during sex ,HIV positive seroconversion in herself or her partner , Possible exposure to sexually transmitted infections Unusual vaginal discharge or genital sores , severe vaginal bleeding or bleeding that lasts a long time, or if she misses a menstrual period, Inability to feel Mirena's threads Counseled the patient that the IUD does not protect against STI's, recommended use of condoms for the first 7 days post insertion and explained to the patient that condoms are recommended for patients at risk for sexually transmitted infections. In for the patient that Mirena IUD is FDA approved for 8 years for contraception for 5 years for the treatment of heavy menses Instructed the patient to schedule a Follow up appointment in 4 to 6 weeks following insertion. This note was generated with a voice recognition program. Some errors may have been overlooked during the review of this note. Sometimes these errors may affect the content or meaning of a given sentence. [id number] Insertion Procedure code (CPT) selection complete Office Meds Mirena 21 mcg/24 hours (8 yrs) 52 mg intrauterine device Performing Provider: Tayo Vieira MD Performing Location: [facility] [place] [facility] Administered by: Tayo Vieira MD on 05/29/23 11:54 Dose Route Admin Location Dispensed Lot Number Expiration Date [facility] Senior Controls Engineer 1 device [facility] [place] 1 device [id number] 09/18/25 29850-109-55 [employer] Results AMB Test Urine AMB Test Urine Negative Last Edit by MEHDI Harrison on 05/29/23 12:02 Results Reviewed Results Reviewed: Laboratory Last Values [facility] Negative 05/29/23 12:01 Assessment & Plan Assessment & Plan (1) Encounter for IUD insertion: Code(s): Z30.430 - Encounter for insertion of intrauterine contraceptive device Plan: IUD inserted, see procedure note Orders: Orders AMB IUD Insertion/Removal - Practice Supplied Today Z30.430 - Encounter for insertion of intrauterine contraceptive device AMB HCG Urine Test Today Z32.02 - Encounter for test, result negative Coding Level of Care Code Procedure Only Diagnoses Encounter for IUD insertion Z30.430 CPT Codes Details - CPT: 63256-KNU Insertion ([id number])
== END 2023-05-29 15:22 | disposition home or self-care (01) ==
PROVIDERS: PCP Nurse Practitioner Family; Visit Provider Obstetrics & Gynecology
DX: Z30.430 Encounter for insertion of intrauterine contraceptive device (principal); Z32.02 Encounter for pregnancy test, result negative
CPT/HCPCS: 58300

== ENCOUNTER → 2023-05-29 11:20 | Outpatient (BNVA) | payer OTHER, SELFPAY | PROVIDERS: PCP Nurse Practitioner Family; Visit Provider Obstetrics & Gynecology | DX: Z30.430 Encounter for insertion of intrauterine contraceptive device (principal) | CPT/HCPCS: 58300; 81025; J7298 ==

== ENCOUNTER 2023-06-20 14:02 | Outpatient (AMB) | payer OTHER, SELFPAY ==
--- NOTE | 2023-06-20 14:14 | MHC.OFFVIS ---
Vital Signs 06/20/23 14:18 Height 5 ft 1 in Weight 147 lb 11.355 oz BMI 27.9 BP 122/76 Intake Visit Reasons: IUD problems Oil Tanker Captain Required: Yes Oil Tanker Captain Language: Wardrobe Mistress Name: Misa HARDING Information Interpreted: non-clinical & clinical Correspondence Analyst: Correspondence Analyst Present (Misa HARDING) Accompanied by: Self / Same As Patient Allergies No Known Allergies Allergy (Verified 06/20/23 14:20) Post menopausal: Yes HPI Comments Details: The patient is presenting for IUD check. The patient has no complaints except for mild spotting, without any pelvic pain or any other concerns PFSH Medical History Hypertension Surgical History H/O tubal ligation Hx of section History of lumpectomy of right breast Family History Father HTN (hypertension) Mother HTN (hypertension) Sister HTN (hypertension) Social History Household Members: Spouse Housing: House Alcohol intake: never Patient Tobacco Use Status: Never used Tobacco Current occupational status: employed Current occupation: [employer] Sexual orientation: Straight/Heterosexual Gender identity: Female Cognitive needs: No Hearing needs: No Vision needs: No Female Reproductive History Menstrual Age of Menarche: 10 Review of Systems Const All systems reviewed & are unremarkable except as noted in HPI and below Physical Exam Vital Signs: Last Vital Signs BP 122/76 06/20/23 14:18 BMI result Body Mass Index 27.9 General: Yes no CVA tenderness External Female Exam: normal external appearance and normal appearance of the urethra Speculum Exam - Vagina: normal appearance of the vagina, normal palpation, no lesions and no masses Speculum Exam - Cervix: normal appearance of the cervix, normal palpation, no lesions, no masses, nontender and Other cervical findings present (IUD string in place) Bimanual exam- vagina & uterus: normal bimanual exam, normal palpation, uterine size normal, normal palpation, uterine shape normal, No Cervical tenderness present and non-tender Bimanual Exam- Adnexa, other: normal adnexae Back/Spine/Pelvis Back: no CVA tenderness Assessment & Plan Assessment & Plan (1) IUD check up: Code(s): Z30.431 - Encounter for routine checking of intrauterine contraceptive device Category: Medical Plan: Discussed with the patient the finding on physical exam, IUD string in place, the patient was reassured. Instructions given to patient to call in case of temperature above 100.4, severe cramping/pelvic pain, abnormal discharge or abnormal uterine bleeding Otherwise follow-up at her annual exam appointment. All questions answered, the patient verbalized understanding. Coding Level of Care Code Est Pt Level 3 (27154) Diagnoses IUD check up Z30.431
[2023-06-20 14:18] VITALS: BP 122/76; BMI 27.9
== END 2023-06-20 15:46 | disposition home or self-care (01) ==
LOC: HO.HWS 14:02
PROVIDERS: PCP Nurse Practitioner Family; Visit Provider Obstetrics & Gynecology
DX: Z30.431 Encounter for routine checking of intrauterine contraceptive device (principal)
CPT/HCPCS: 99213

== ENCOUNTER → 2023-06-20 14:02 | Outpatient (BNVA) | payer OTHER, SELFPAY | PROVIDERS: PCP Nurse Practitioner Family; Visit Provider Obstetrics & Gynecology | DX: Z30.431 Encounter for routine checking of intrauterine contraceptive device (principal) | CPT/HCPCS: 99212 ==

== ENCOUNTER 2023-09-04 08:39 | Outpatient (REF) | payer OTHER, SELFPAY | END 2023-09-04 08:40 | disposition home or self-care (01) | LOC: HO.LNP 08:39 | PROVIDERS: PCP Nurse Practitioner Family; Visit Provider Obstetrics & Gynecology | DX: N93.9 Abnormal uterine and vaginal bleeding, unspecified (principal); T83.32XA Displacement of intrauterine contraceptive device, initial encounter | CPT/HCPCS: 58100; 81025; 88305; 99212 ==

== ENCOUNTER 2023-09-04 08:39 | Outpatient (AMB) | payer OTHER, SELFPAY ==
--- NOTE | 2023-09-04 08:55 | MHC.OFFVIS ---
Vital Signs 09/04/23 09:13 Height 5 ft 1 in Weight 147 lb 11.355 oz BMI 27.9 BP 110/72 Intake Visit Reasons: Vaginal Bleeding Software Engineer Developer Required: Yes Software Engineer Developer Language: Public Events Facilities Rental Manager Services: Software Engineer Developer Present (in person) Software Engineer Developer Name: Misa HARDING Information Interpreted: non-clinical & clinical Farm Machine Tender: Farm Machine Tender Present (Misa HARDING) Accompanied by: Self / Same As Patient Allergies No Known Allergies Allergy (Verified 09/07/23 09:21) Post menopausal: Yes HPI Comments Details: Presenting complaining of few days' history of vaginal bleeding. The patient has Mirena IUD. Last EMB was done in 05/13 which showed the following: Benign endometrium with extensive glandular and stromal breakdown (lytic endometrium) with abundant blood; no atypia or carcinoma seen. Last co testing was in 05/11 was negative Last ultrasound was done in 04/15 showed multiple myomas. [facility] Medical History Hypertension Surgical History H/O tubal ligation Hx of section History of lumpectomy of right breast Family History Father HTN (hypertension) Mother HTN (hypertension) Sister HTN (hypertension) Social History Household Members: Spouse Housing: House Alcohol intake: never Patient Tobacco Use Status: Never used Tobacco Current occupational status: employed Current occupation: [employer] Sexual orientation: Straight/Heterosexual Gender identity: Female Cognitive needs: No Hearing needs: No Vision needs: No Female Reproductive History Menstrual Age of Menarche: 10 Review of Systems Const All systems reviewed & are unremarkable except as noted in HPI and below Physical Exam Vital Signs: Last Vital Signs BP 110/72 09/04/23 09:13 BMI result Body Mass Index 27.9 General: Yes no CVA tenderness External Female Exam: normal external appearance and normal appearance of the urethra Speculum Exam - Vagina: normal appearance of the vagina, normal palpation, no lesions and no masses Speculum Exam - Cervix: normal appearance of the cervix, normal palpation, no lesions, no masses, nontender and Other cervical findings present (IUD string not seen) Bimanual exam- vagina & uterus: normal bimanual exam, normal palpation, uterine size normal, normal palpation, uterine shape normal, No Cervical tenderness present and non-tender Bimanual Exam- Adnexa, other: normal adnexae Back/Spine/Pelvis Back: no CVA tenderness Office Procedures Endometrial Biopsy Details: The patient was counseled regarding the indication and benefits of endometrial sampling to rule out endometrial pathology including not limited to endometrial hyperplasia or endometrial cancer and others; The alternatives (Either do nothing vs. hysteroscopy D&C) & the risks were discussed with the patient including but not limited: pain, uterine perforation, bleeding, infection, possible injury to bladder, bowel, ureter, possible need for blood transfusion with all its possible risks. The patient verbalized understanding all questions answered and signed consent. UPT done in the office was negative The patient was placed into the dorsal lithotomy position; a speculum was inserted in the vagina. Using aseptic technique for the procedure, the cervix was cleansed with Betadine. The anterior lip of the cervix was grasped with a single tooth tenaculum. The uterus was sounded to 7 cm with a 4 mm Pipelle was used. Tissues samples were obtained and placed in formalin, in a patient labeled container and sent to the pathology department. At the end of the procedure, there was minimal bleeding noted The patient tolerated the procedure well and was discharged in good condition with the following instructions: Nothing in the vagina until the bleeding stops. No sex until the bleeding stops, to call if any of the following occurs: fever (>100.4), flu-like symptoms, abdominal pain, heavy bleeding, four smelling vaginal discharge. The patient was instructed to schedule a Follow up appointment in 2 weeks to discuss pathology results of the biopsy and treatment options. This note was generated with a voice recognition program. Some errors may have been overlooked during the review of this note. Sometimes these errors may affect the content or meaning of a given sentence. [id number] Biopsy Results AMB Test Urine AMB Test Urine Negative Last Edit by Misa Anne CMA on 09/04/23 11:05 Results Reviewed Results Reviewed: Laboratory Last Values Tst Clinic Negative 09/04/23 11:05 Assessment & Plan Assessment & Plan (1) Abnormal uterine bleeding: Comment: Recurrent AUB Multile myomas Code(s): N93.9 - Abnormal uterine and vaginal bleeding, unspecified Category: Medical Plan: UPT done in the office was negative. CBC ordered. Pelvic ultrasound stat ordered. EMB done, see procedure note. Instructions given the patient to schedule a 3 day follow-up appoint (2) IUD strings lost: Code(s): T83.32XA - Displacement of intrauterine contraceptive device, initial encounter Category: Medical Plan: Explained to the patient that her IUD string was not seen on pelvic exam, ultrasound of the pelvis to assess the location of the IUD. Orders: Orders AMB Endometrial Biopsy 09/04/23 N93.9 - Abnormal uterine and vaginal bleeding, unspecified AMB HCG Urine Test 09/04/23 Z32.02 - Encounter for test, result negative US pelvic and transvaginal 09/04/23 N93.9 - Abnormal uterine and vaginal bleeding, unspecified, T83.32XA - Displacement of intrauterine contraceptive device, initial encounter Surgical 09/04/23 N93.9 - Abnormal uterine and vaginal bleeding, unspecified Coding Level of Care Code Est Pt Level 3 (72297) Procedure Only Diagnoses Abnormal uterine bleeding N93.9 IUD strings lost T83.32XA CPT Codes Endometrial Biopsy - CPT: 06390-Pofovtiaopu Biopsy ([id number])
[2023-09-04 09:13] VITALS: BP 110/72; BMI 27.9
== END 2023-09-04 09:59 | disposition home or self-care (01) ==
LOC: HO.HWS 08:39
PROVIDERS: PCP Nurse Practitioner Family; Visit Provider Obstetrics & Gynecology
DX: N93.9 Abnormal uterine and vaginal bleeding, unspecified (principal); Z32.02 Encounter for pregnancy test, result negative
CPT/HCPCS: 58100; 99213

== ENCOUNTER 2023-09-04 10:19 | Outpatient (REF) | payer OTHER, SELFPAY ==
--- NOTE | ~2023-09-04 | US_ITS ---
EXAMINATION: US PELVIS COMPLETE CLINICAL INFORMATION: Displacement of intrauterine device; the patient is currently having her menstrual period.. COMPARISON: None. TECHNIQUE: Transabdominal imaging was performed. FINDINGS: The uterus is of normal size and echogenicity, measuring 12.3 x 5.7 x 6.4 cm. The uterus is anteverted and anteflexed. A regular homogeneous endometrium is identified measuring 0.5 cm. (). An intrauterine device is seen, properly situated within the endometrial canal. FIBROIDS: There are 4 fibroids seen. 1. Location: Posterior fundus, subserosal. Size: 3.6 x 2.4 x 3.4 cm. Fibroid characteristics: Hypoechoic. 2. Location: Upper rightward body, myometrial. Size: 0.9 x 0.7 x 0.9 cm. Fibroid characteristics: Hypoechoic. 3. Location: Leftward fundus, myometrial. Size: 0.8 x 0.5 x 0.7 cm. Fibroid characteristics: Hypoechoic. 4. Location: Mid leftward body, myometrial. Size: 2.7 x 2.2 x 2.2 cm. Fibroid characteristics: Heterogeneously hypoechoic. The right ovary is not visualized. The left ovary is normal in size and echotexture, measuring 3.8 x 2.1 x 3.6 cm for a volume of 15.1 mL. The left ovary contains a 2.3 cm benign, simple follicle, for which no imaging follow-up is recommended. There is no pelvic free fluid. No adnexal mass is seen. US/US pelvic and transvaginal IMPRESSION: 1. Multiple uterine fibroids are seen, as detailed. 2. An intrauterine device is seen, properly situated within the endometrial canal.
[2023-09-04 11:42] LABS: Hematocrit 40.2 % (37.0-47.0); Hemoglobin 13.5 g/dl (12.0-16.0); Mean Corpuscular HGB Conc 33.6 g/dl (31.0-35.0); Mean Corpuscular Hemoglobin 28.2 pg (27.0-33.0); Mean Corpuscular Volume 83.9 fL (80.0-98.0); Mean Platelet Volume 11.6 fL (9.4-12.3); Platelet Count 165 X10*3/uL (160-400); Red Blood Count 4.79 X10*6/uL (4.20-5.50); Red Cell Distribution Width 14.6 % (11.0-16.0); White Blood Count 7.5 X10*3/uL (4.8-10.8)
== END 2023-09-04 10:20 | disposition home or self-care (01) ==
LOC: HO.US 10:19
PROVIDERS: Visit Provider Obstetrics & Gynecology
DX: N93.9 Abnormal uterine and vaginal bleeding, unspecified (principal); T83.32XA Displacement of intrauterine contraceptive device, initial encounter
CPT/HCPCS: 36415; 76830; 76856; 85027

== ENCOUNTER 2023-09-07 09:18 | Outpatient (AMB) | payer OTHER, SELFPAY ==
[2023-09-07 09:19] VITALS: BMI 27.9
--- NOTE | 2023-09-07 09:19 | MHC.OFFVIS ---
Vital Signs 09/07/23 09:19 Height 5 ft 1 in Weight 147 lb 11.355 oz BMI 27.9 Intake Visit Reasons: US/EMB follow up/Per Insole Presser Required: Yes Insole Presser Language: Tool Trouble Shooter Services: Insole Presser Present (in person) Insole Presser Name: Misa HARDING Information Interpreted: non-clinical & clinical Accompanied by: Self / Same As Patient Allergies No Known Allergies Allergy (Verified 09/07/23 09:21) Post menopausal: Yes HPI Comments Details: Presenting for follow-up post EMB for abnormal uterine bleeding bleeding. The patient had Mirena IUD inserted in 06/13. Last cotest was in 05/11 was negative EMB done in 06/11 showed secretory endometrium negative for endometrial hyperplasia and/or malignancy EMB in 05/12 showed a lytic endometrium with no atypia or hyperplasia or malignancy. EMB in 05/13 showed benign endometrium with no endometrial hyperplasia and/or malignancy or atypia. The patient presented few days ago with recurrent vaginal bleeding, EMB was repeated and endometrial pathology showed the following: Fragments of benign endometrium with extensive pseudodecidual change, breakdown and organizing clot, consistent with exogenous progestin; no atypia identified Pelvic ultrasound done few days ago, report is still pending, unofficial reading of the ultrasound showed the following: IUD in place, left 2.3 cm simple ovarian cyst 4 Myomas with the following measurements: 3.6 x 3.4 x 2.4 previously 3.6 x 3.4 x 1.9 cm 0.9 x 0.9 x 0.7 previously 1 x 1.1 x 1.1 cm 0.6 x 0.5 x 0.5 previously 0.8 x 0.7 x 0.5 cm 2.2 x 2.2 x 2.7 cm myoma not previously seen [facility] Medical History Hypertension Surgical History H/O tubal ligation Hx of section History of lumpectomy of right breast Family History Father HTN (hypertension) Mother HTN (hypertension) Sister HTN (hypertension) Social History Household Members: Spouse Housing: House Alcohol intake: never Patient Tobacco Use Status: Never used Tobacco Current occupational status: employed Current occupation: [employer] Sexual orientation: Straight/Heterosexual Gender identity: Female Cognitive needs: No Hearing needs: No Vision needs: No Female Reproductive History Menstrual Age of Menarche: 10 Review of Systems Const All systems reviewed & are unremarkable except as noted in HPI and below Reports as per HPI and Reports no additional complaints GI Reports no additional complaints Reports no additional complaints Physical Exam Vital Signs: BMI result Body Mass Index 27.9 Assessment & Plan Assessment & Plan (1) Abnormal uterine bleeding: Comment: Recurrent AUB Multile myomas Code(s): N93.9 - Abnormal uterine and vaginal bleeding, unspecified Category: Medical Plan: Discussed with the patient the finding on ultrasound with mild increase in myoma sizes and the results the pathology negative for endometrial hyperplasia or malignancy or atypia. Different Options of treatment were discussed with the patient including medical and or surgical management, all pros and cons, risks and benefits of each were discussed with the patient, the patient decided proceed with surgical management. Discussed with the patient the different types of hysterectomies including, vaginal, laparoscopic assisted vaginal, robotic assisted laparoscopic,& abdominal with BSO. All pros, cons, r/b of each approach were discussed the patient including evidence that morbidity is less and recovery is shorter with minimally invasive approaches to hysterectomy. Discussed with the patient the lack of availability of the robot DaVinci robot and/or minimally invasive senior field service engineer specialist at [facility]. Offered referral to [facility] minimally invasive epic willow analyst for further management, the patient is traveling to [facility] and would like to have the surgery by her senior field service engineer over there. Instructions given the patient not to delay seeking care an effort not to affect the prognosis and to to call in case she changes her mind for the referral. All questions answered, the patient verbalized understanding especially the urgency of her clinical situation and agreed with the plan. Copy of the medical record was given to the patient. Coding Level of Care Code Est Pt Level 3 (16975) Diagnoses Abnormal uterine bleeding N93.9
== END 2023-09-07 10:31 | disposition home or self-care (01) ==
LOC: HO.HWS 09:18
PROVIDERS: PCP Nurse Practitioner Family; Visit Provider Obstetrics & Gynecology
DX: N93.9 Abnormal uterine and vaginal bleeding, unspecified (principal)
CPT/HCPCS: 99213

== ENCOUNTER → 2023-09-07 09:18 | Outpatient (BNVA) | payer OTHER, SELFPAY | PROVIDERS: PCP Nurse Practitioner Family; Visit Provider Obstetrics & Gynecology | DX: N93.9 Abnormal uterine and vaginal bleeding, unspecified (principal) | CPT/HCPCS: 99212 ==

== ENCOUNTER 2023-11-20 13:33 | Emergency (ER) | payer OTHER, SELFPAY ==
[2023-11-20 14:24] VITALS: BP 148/88; PULSE 80; RESP 16; TEMP 36.9; O2SAT 98; BMI 26.6
== END 2023-11-20 21:47 | disposition left against medical advice (07) ==
LOC: HO.ED 21:43
PROVIDERS: Emergency Provider Emergency Medicine; PCP Physician Assistant
DX: S09.90XA Unspecified injury of head, initial encounter (principal); W22.8XXA Striking against or struck by other objects, initial encounter; Y93.89 Activity, other specified; Y92.210 Daycare center as the place of occurrence of the external cause; Y99.0 Civilian activity done for income or pay
CPT/HCPCS: 99281

== ENCOUNTER 2024-01-16 14:52 | Outpatient (REF) | payer OTHER, SELFPAY ==
--- NOTE | ~2024-01-16 | US_ITS ---
EXAMINATION: US PELVIS CLINICAL INFORMATION: Pelvic and perineal pain, last menstrual period 3 months ago. COMPARISON: 09/04/2023. TECHNIQUE: Ultrasound of the pelvis is performed using both transabdominal and transvaginal transducers along with Doppler. Transvaginal imaging is performed due to inadequate visualization transabdominally. FINDINGS: The anteverted uterus measures 8.7 x 6.4 x 6.8 cm, volume 198 mL. Endometrial thickness is [address] within the endometrial cavity. Multiple uterine fibroids as follows: 1.0 x 0.4 x 0.7 cm left, previously 0.8 x 0.5 x 0.7 cm. 3.0 x 2.4 x 2.5 cm left, previously 2.7 x 2.2 x 2.2 cm. 3.3 x 2.5 x 3.6 cm posterior, previously 3.6 x 2.4 x 3.4 cm. 1.1 x 1.1 x 1.4 cm fundal was not previously visualized. Previously identified 0.9 cm fibroid right midline not clearly visualized on the current exam. Right ovary measures 2.1 x 1.1 x 1.8 cm, volume 1.8 mL and is unremarkable. Left ovary measures 3.3 x 1.3 x 1.4 cm, volume 3.2 mm and was seen only on transabdominal ultrasound images, limiting evaluation. No significant free fluid. US/US pelvic and transvaginal IMPRESSION: 1. IUD in place within the endometrial cavity. 2. Multiple uterine fibroids, as described. 3. Unremarkable right ovary. 4. Left ovary was seen only on transabdominal ultrasound images, limiting evaluation. Electronically signed by: Mignon Harrington MD 01/17/2024 09:53 AM [facility] [place]
== END 2024-01-16 14:53 | disposition home or self-care (01) ==
LOC: HO.US 14:52
PROVIDERS: Visit Provider Obstetrics & Gynecology
DX: R10.2 Pelvic and perineal pain (principal)
CPT/HCPCS: 58100; 76830; 76856; 99212

== ENCOUNTER 2024-01-16 15:44 | Outpatient (AMB) | payer OTHER, SELFPAY ==
--- NOTE | 2024-01-16 15:46 | MHC.OFFVIS ---
Intake Visit Reasons: pelvic pain / bleeding with IUD Construction Producer Required: Yes Construction Producer Language: College Associate Services: Construction Producer Present (in person) Construction Producer Name: MEHDI Mccabe Accompanied by: Self / Same As Patient Allergies No Known Allergies Allergy (Verified 01/16/24 15:51) HPI Comments Details: Presenting complaining of vaginal spotting on Mirena IUD associated with pelvic cramping no urinary or GI symptoms. Last EMB in 09/12 was benign, the patient was referred for minimally invasive hysterectomy at [facility] as in the process of being scheduled if her vaginal bleeding persists. [facility] Medical History Hypertension Surgical History H/O tubal ligation Hx of section History of lumpectomy of right breast Family History Father HTN (hypertension) Mother HTN (hypertension) Sister HTN (hypertension) Social History Household Members: Spouse Housing: House Alcohol intake: never Patient Tobacco Use Status: Never used Tobacco Current occupational status: employed Current occupation: [employer] Sexual orientation: Straight/Heterosexual Gender identity: Female Cognitive needs: No Hearing needs: No Vision needs: No Female Reproductive History Menstrual Age of Menarche: 10 Review of Systems Const All systems reviewed & are unremarkable except as noted in HPI and below Physical Exam General: Yes no CVA tenderness External Female Exam: normal external appearance and normal appearance of the urethra Speculum Exam - Vagina: normal appearance of the vagina, normal palpation, no lesions and no masses Speculum Exam - Cervix: normal appearance of the cervix, normal palpation, no lesions, no masses and nontender Bimanual exam- vagina & uterus: normal bimanual exam, normal palpation, uterine size normal, normal palpation, uterine shape normal, No Cervical tenderness present and non-tender Bimanual Exam- Adnexa, other: normal adnexae Back/Spine/Pelvis Back: no CVA tenderness Office Procedures Endometrial Biopsy Details: The patient was counseled regarding the indication and benefits of endometrial sampling to rule out endometrial pathology including not limited to endometrial hyperplasia or endometrial cancer and others; The alternatives (Either do nothing vs. hysteroscopy D&C) & the risks were discussed with the patient including but not limited: pain, uterine perforation, bleeding, infection, possible injury to bladder, bowel, ureter, possible need for blood transfusion with all its possible risks. The patient verbalized understanding all questions answered and signed consent. The patient was placed into the dorsal lithotomy position; a speculum was inserted in the vagina. Using aseptic technique for the procedure, the cervix was cleansed with Betadine. The anterior lip of the cervix was grasped with a single tooth tenaculum. The uterus was sounded to 7 cm with a 4 mm Pipelle was used. Tissues samples were obtained and placed in formalin, in a patient labeled container and sent to the pathology department. At the end of the procedure, there was minimal bleeding noted The patient tolerated the procedure well and was discharged in good condition with the following instructions: Nothing in the vagina until the bleeding stops. No sex until the bleeding stops, to call if any of the following occurs: fever (>100.4), flu-like symptoms, abdominal pain, heavy bleeding, four smelling vaginal discharge. The patient was instructed to schedule a Follow up appointment in 2 weeks to discuss pathology results of the biopsy and treatment options. This note was generated with a voice recognition program. Some errors may have been overlooked during the review of this note. Sometimes these errors may affect the content or meaning of a given sentence. [id number] Biopsy Assessment & Plan Assessment & Plan (1) Abnormal uterine bleeding: Comment: Recurrent AUB Multile myomas Mirena IUD Code(s): N93.9 - Abnormal uterine and vaginal bleeding, unspecified Category: Medical Plan: EMB done, see procedure note GC/CT taken Pelvic ultrasound ordered Instructions given to patient to schedule a follow-up appointment within a week. All questions answered, the patient verbalized understanding Orders: Orders US pelvic and transvaginal Today R10.2 - Pelvic and perineal pain Surgical Today N93.9 - Abnormal uterine and vaginal bleeding, unspecified CT NG by PCR Today N93.9 - Abnormal uterine and vaginal bleeding, unspecified AMB Endometrial Biopsy Today N93.9 - Abnormal uterine and vaginal bleeding, unspecified Coding Level of Care Code Est Pt Level 3 (85398) Procedure Only Diagnoses Abnormal uterine bleeding N93.9 CPT Codes Endometrial Biopsy - CPT: 15136-Wkkbxnlqqlv Biopsy ([id number])
== END 2024-01-16 16:07 | disposition home or self-care (01) ==
LOC: HO.HWS 15:45
PROVIDERS: PCP Physician Assistant; Visit Provider Obstetrics & Gynecology
DX: N93.9 Abnormal uterine and vaginal bleeding, unspecified (principal)
CPT/HCPCS: 58100; 99213

== ENCOUNTER 2024-01-16 16:03 | Outpatient (REF) | payer OTHER, SELFPAY ==
[2024-01-17 03:59] LABS: CT PCR NOT DETECTED (Not Detect.); NG PCR NOT DETECTED (Not Detect.)
== END 2024-01-16 16:04 | disposition home or self-care (01) ==
LOC: HO.LNP 16:03
PROVIDERS: Visit Provider Obstetrics & Gynecology
DX: N93.9 Abnormal uterine and vaginal bleeding, unspecified (principal)
CPT/HCPCS: 87491; 87591; 88305

== ENCOUNTER 2024-01-25 15:13 | Outpatient (AMB) | payer OTHER, SELFPAY ==
[2024-01-25 15:19] VITALS: BP 140/80
--- NOTE | 2024-01-25 15:19 | A.OFFVIS_ITS ---
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 The patient has no complaints, no vaginal bleeding, no feverishness chills or abdominal pain. The endometrial biopsy pathology report showed the following: Endometrium, biopsy: Abundant mucus, blood, and benign endocervical glandular epithelium, with scant benign inactive endometrium with decidual stromal change consistent with progestin effect, and scant benign squamous epithelium (see comment). Comment: No atypia or carcinoma seen, but the endometrium is scant and may not be sales representative meats The patient was referred to [facility] was evaluated as a follow-up appointment for scheduling possible hysterectomy PFSH Medical History Hypertension Surgical History H/O tubal ligation Hx of section History of lumpectomy of right breast Family History Father HTN (hypertension) Mother HTN (hypertension) Sister HTN (hypertension) Social History Household Members: Spouse Housing: House Alcohol intake: never Patient Tobacco Use Status: Never used Tobacco Current occupational status: employed Current occupation: [employer] Sexual orientation: Straight/Heterosexual Gender identity: Female Cognitive needs: No Hearing needs: No Vision needs: No Female Reproductive History Menstrual Age of Menarche: 10 Review of Systems Const All systems reviewed & are unremarkable except as noted in HPI and below Reports as per HPI and Reports no additional complaints GI Reports no additional complaints Reports no additional complaints Physical Exam Vital Signs: Last Vital Signs BP 140/80 H 01/25/24 15:19 Assessment & Plan Assessment & Plan (1) Abnormal uterine bleeding: Comment: Recurrent AUB Multile myomas Mirena IUD Code(s): N93.9 - Abnormal uterine and vaginal bleeding, unspecified Category: Medical Plan: Discussed with the patient the results the pathology especially the fact that the tissues were scant and may not be sales representative meats from endometrial cavity, therefore endometrial pathology including endometrial hyperplasia and/or malignancy has not been ruled out; recommended to the patient to repeat endometrial sampling. Recommended to the patient that the next step is an endometrial sampling via hysteroscopy D&C possible polypectomy versus endometrial biopsy to r/o endometrial pathology including hyperplasia or cancer. All the pros and cons risks and benefits of each approach were discussed with the patient, endometrial biopsy being less invasive, office procedure with less sensitivity and inability diagnose a polyp and removal versus hysteroscopy done under anesthesia more invasive more sensitive to endometrial cancer and possibility of diagnosing and endometrial polyp with the possibility of polypectomy. The patient understands the fact that endometrial pathology has not been ruled out and decided not to proceed with EMB today since she has an appointment at [facility]. Explained to the patient that endometrial pathology including hyperplasia or malignancy has not been ruled out, all questions answered the patient verbalized understanding. Instructed the patient to call our office back in case her follow-up appointment at [facility] is missed, delayed or canceled, the patient verbalized understanding agreed with the plan. Coding Level of Care Code Est Pt Level 3 (20538) Diagnoses Abnormal uterine bleeding N93.9
== END 2024-01-25 15:46 | disposition home or self-care (01) ==
LOC: HO.HWS 15:13
PROVIDERS: PCP Physician Assistant; Visit Provider Obstetrics & Gynecology
DX: N93.9 Abnormal uterine and vaginal bleeding, unspecified (principal)
CPT/HCPCS: 99213

== ENCOUNTER → 2024-01-25 15:13 | Outpatient (BNVA) | payer OTHER, SELFPAY | PROVIDERS: PCP Physician Assistant; Visit Provider Obstetrics & Gynecology | DX: N93.9 Abnormal uterine and vaginal bleeding, unspecified (principal) | CPT/HCPCS: 99212 ==